=== PATIENT | female | born 1940 | race Caucasian/White ===

== ENCOUNTER 2018-03-15 16:09 | Observation (INO) | payer MEDICARE, BC ==
[~2018-03-15 16:09] MED LIST: ISOVUE-370 76%-LOCM 1 ML ONE
[2018-03-15 16:43] LABS: #Basophils 0.1 thou/uL (0.0-0.2); #Eosinphils 0.2 thou/uL (0.0-0.7); #Monocytes 0.8 thou/uL (0.11-0.59); %Basophils 1.5 % (0.0-1.0); %Eosinophils 2.8 % (0.0-10.0); %Lymphocytes 42.4 % (21.0-51.0); %Monocytes 10.8 % (0.0-10.0); %Neutrophils 42.5 % (42.0-75.0); Hemoglobin 12.5 g/dL (12.0-16.0); Mean Corpuscular HGB CONC 33.8 g/dL (32.0-36.0); Mean Corpuscular Hemoglobin 32.5 pg (27.0-31.0); Mean Platelet Volume 6.5 fL (7.4-10.4); Platelet Count 193 thou/uL (130-400); Red Blood Cell (RBC) Count 3.86 mill/uL (4.20-5.40); White Blood Cell (WBC) Count 7.1 thou/uL (4.8-10.8)
[2018-03-15 17:03] LABS: ALT (SGPT) 24 U/L (8-55); AST (SGOT) 21 U/L (5-34); Albumin 3.7 g/dL (3.4-4.8); Alkaline Phosphatase 81 U/L (40-150); Anion Gap 13 mmol/L (10-20); BUN (Urea Nitrogen) 11 mg/dL (9.8-20.1); Bilirubin, Total 0.3 mg/dL (0.2-1.2); CK (CPK) 33 U/L (29-168); Calc. Creatinine Clearance 0 mL/min (70-130); Calcium 9.3 mg/dL (7.8-10.44); Carbon Dioxide 28 mmol/L (23-31); Chloride 103 mmol/L (98-107); Estimated GFR-MDRD 77; Globulin 2.8 g/dL (2.4-3.5); Glucose 138 mg/dL (83-110); Potassium 3.7 mmol/L (3.5-5.1); Protein, Total 6.5 g/dL (6.0-8.3); Sodium 140 mmol/L (136-145)
--- NOTE | 2018-03-15 17:03 | RAD ---
CHEST ONE VIEW Upright portable: 03/15/18 HISTORY: 77-year-old female with history of chest pain, shortness of breath, dizziness. COMPARISON: 04/29/16. FINDINGS: Left ICD. Heart size is within normal limits. The lungs are clear of acute process. IMPRESSION: No acute intrathoracic disease. POS: [facility]
[2018-03-15 17:09] LABS: CKMB 0.7 ng/mL (0-6.6); Troponin I Less than 0.010 ng/mL (< 0.028)
[2018-03-15] MEDS ORDERED: Nitroglycerin 2% Ointment 1 INCH/1 GM Packet ONE (17:51)
[2018-03-15] MEDS ORDERED: Acetaminophen 325 MG TAB PO PRN ×2 (19:32→22:20)
[2018-03-15] MEDS ORDERED: Aspirin 325 MG TAB PO SCH (20:00)
[2018-03-15 21:08] VITALS: BMI 32.1
[2018-03-15 21:28] LABS: Troponin I Less than 0.010 ng/mL (< 0.028)
[2018-03-15] MEDS ORDERED: Senokot 8.6 MG TAB PO PRN (22:20)
[2018-03-15] MEDS ORDERED: Nitroglycerin 0.4 MG TAB (25 Tab Bottle) PO PRN (22:20)
[2018-03-15] MEDS ORDERED: Calcium Carbonate 500 MG ChewTAB PO PRN (22:20)
[2018-03-15] MEDS ORDERED: clonazePAM 0.5 MG TAB PO PRN (22:23)
[2018-03-15] MEDS ORDERED: HYDROcodone/Acetaminophen 10/325 mg Tablet PO PRN (22:23)
[2018-03-15] MEDS ORDERED: Carvedilol 25 MG TAB PO SCH (22:30)
[2018-03-15] MEDS ORDERED: risperiDONE 1 MG TAB PO SCH (22:30)
[2018-03-15] MEDS ORDERED: traZODone HCl 50 MG TAB PO SCH (22:30)
[2018-03-15] MEDS ORDERED: Gabapentin 100 MG CAP PO SCH (22:30)
[2018-03-15 23:52] LABS: Troponin I Less than 0.010 ng/mL (< 0.028)
--- NOTE | 2018-03-15 23:56 | HP ---
DATE OF ADMISSION: 03/15/2018 CHIEF COMPLAINT: Chest discomfort. PRIMARY CARE PHYSICIAN: Dr. Moore. PRIMARY TECHNICAL OPERATOR: Dr. Lloyd. HISTORY OF PRESENT ILLNESS: The patient is a 77-year-old female with obesity, chronic respiratory fa ilure, on home oxygen at night, hypertension, hyperlipidemia, and pacemaker in the past, presented to the emergency room with chest discomfort. Over the past couple of days, patient has intermittent chest discomforts which are short lasting. Ea rlier today around 2:00 p.m. while she was resting at home, she had sudden onset of chest discomfort that was pressure-like, radiating to her left arm. She had some left arm numbness as well. She ment ioned that she felt like an "baby elephant sitting on her chest." She tried one nitroglycerin with g ood response. Total pain lasted for approximately 45 minutes. She was short of breath and dizzy at that time. There was also some worsening of the pain on deep breathing. PAST MEDICAL HISTORY: 1. Hypertension. 2. History of pulmonary embolism, completed anticoagulation. 3. Hypothyroidism. 4. Chronic respiratory failure, on home oxygen. 5. Depression. 6. Pacemaker placement. 7. Chronic pain syndrome. 8. Cardiomyopathy. 9. History of atrial fibrillation in remote past. PAST SURGICAL HISTORY: 1. Pacemaker placement and multiple back surgeries. 2. Total abdominal hysterectomy with bilateral salpingo-oophorectomy. 3. Colonoscopy with polypectomy. SOCIAL HISTORY: She currently lives alone. She is . She spends most of her time in a [facility] er. She is not physically active. Currently smoking, alcohol or drug use. She makes her own decisi on with the help of her family. ALLERGIES: The patient denies any drug allergies. CURRENT HOME MEDICATIONS: Family to get accurate list of medications. She is unable to recall all o f her medications exactly. FAMILY HISTORY: Negative for premature coronary artery disease. REVIEW OF SYSTEMS: The following complete review of systems was negative, unless otherwise mentioned in the HPI or below: Constitutional: Weight loss or gain, ability to conduct usual activities. Skin: Rash, itching. Eyes: Double vision, pain. ENT/Mouth: Nose bleeding, neck stiffness, pain, tenderness. Cardiovascular: Palpitations, dyspnea on exertion, orthopnea. Respiratory: Shortness of breath, wheezing, cough, hemoptysis, fever or night sweats. Gastrointestinal: Poor appetite, abdominal pain, heartburn, nausea, vomiting, constipation, or diarr hea. Genitourinary: Urgency, frequency, dysuria, nocturia. Musculoskeletal: Pain, swelling. Neurologic/Psychiatric: Anxiety, depression. Allergy/Immunologic: Skin rash, bleeding tendency. PHYSICAL EXAMINATION: VITAL SIGNS: Temperature 97.9, respirations 16, pulse rate of 80, blood pressure 143/70 with O2 satu ration of 95% on room air, pulse rate of 80. GENERAL: A 77-year-old female in no apparent distress, no chest pain at this time. HEENT: Atraumatic, normocephalic. Sclerae are anicteric. Moist mucous membrane, no oral lesion. NECK: Supple, no JVD appreciated. No carotid bruit. LUNGS: Clear to auscultation bilaterally, no wheezing, rales or rhonchi. HEART: S1, S2 present. Regular rate and rhythm. No rubs or gallops appreciated. Pacemaker noted. There was no reproducible chest wall tenderness. ABDOMEN: Soft, nontender, bowel sounds present. EXTREMITIES: There was some calf tenderness bilaterally. She is unsure whether this is chronic. SKIN: Warm and dry. LYMPH NODES: No palpable lymph nodes in the neck. PERIPHERAL VASCULAR: Radial pulses palpable bilaterally. MUSCULOSKELETAL: No joint swelling or tenderness. LABORATORY DATA AND IMAGING DATA: Troponins were negative. CBC showed WBC 7.1 with hemoglobin 12.5, BUN 11, creatinine 0.73, BNP 82.6. Chest x-ray by my review was negative for infiltrate. EKG by my review showed paced rhythm. IMPRESSION: 1. Chest discomfort. We will rule out acute coronary syndrome. Pulmonary embolism also needs to be ruled out. Her pain was somewhat pleuritic. She spends most of the time sitting on a recliner. [facility] is not physically active. 2. Hypertension. 3. Hyperlipidemia. 4. Obesity with body mass index of 32.2. 5. Anxiety, depression. Patient denies any suicidal ideation. 6. History of pacemaker placement. 7. Chronic kidney disease stage 2. 8. Hypothyroidism. 9. Remote history of atrial fibrillation. 10. History of pulmonary embolism in the past. 11. Negative Cardiolite stress test in 2016. 12. Chronic pain syndrome. 13. Chronic respiratory failure on home oxygen at night. 14. Gastroesophageal reflux disease. PLAN: The patient will be monitored in the telemetry unit. Cardiology will be consulted. We will g et a D-dimer. If D-dimer is abnormal, she will benefit from a CT angiogram of the chest. We will ge t serial troponins. We will resume home medications once confirmed. We will continue proton pump in hibitors. Plan of care was discussed with the patient in detail. She stated understanding.
[2018-03-15] MEDS ORDERED: Nitroglycerin 2% Ointment 1 INCH/1 GM Packet TOP SCH (23:59)
[2018-03-16] MEDS ORDERED: Sodium Chloride 0.9% 1,000 ML IV SCH (00:45)
[2018-03-16] MEDS ORDERED: Levothyroxine Sodium 125 MCG TAB PO SCH (06:00)
[2018-03-16] MEDS ORDERED: Mometasone/Formoterol 120 PUFF INHALER INH SCH (06:30)
[2018-03-16] MEDS ORDERED: Aspirin 325 MG TAB PO SCH (08:00)
[2018-03-16] MEDS ORDERED: Carvedilol 25 MG TAB PO SCH (08:00)
[2018-03-16] MEDS ORDERED: Milk Of Magnesia 30 ML UDCUP PO PRN (08:22)
[2018-03-16] MEDS ORDERED: Loperamide HCl 2 MG CAP PO PRN (08:22)
[2018-03-16] MEDS ORDERED: hydrALAZINE 20 MG/ML VIAL SLOW IVP PRN (08:22)
[2018-03-16] MEDS ORDERED: Diabetic Tussin 200 MG/10 ML UDCUP PO PRN (08:22)
[2018-03-16] MEDS ORDERED: Mag-Al 1200 mg/1200 mg/30 ML UDCUP PO PRN (08:22)
[2018-03-16] MEDS ORDERED: Loratadine 10 MG TAB PO PRN (08:22)
[2018-03-16] MEDS ORDERED: Sodium Chloride 0.65% Nasal 44 ML BOT EA NARE PRN (08:22)
[2018-03-16] MEDS ORDERED: HYDROcodone/Acetaminophen 5/325 mg Tablet PO PRN (08:22)
[2018-03-16] MEDS ORDERED: Chloraseptic Spray 180 ml Bottle PO PRN (08:22)
[2018-03-16] MEDS ORDERED: Artificial Tears 18 DROP/0.9 ML EA EYE PRN (08:22)
[2018-03-16] MEDS ORDERED: Ondansetron HCl/PF 4 MG/2 ML Vial IVP PRN (08:22)
[2018-03-16] MEDS ORDERED: Eucerin (Mineral Oil/Petrolatum,White) 30 gm Jar TOP PRN (08:22)
[2018-03-16] MEDS ORDERED: Ondansetron ODT 4 MG TAB PO PRN (08:22)
[2018-03-16] MEDS: Gabapentin 100 MG CAP PO SCH ×2 (08:50→15:50)
[2018-03-16] MEDS ORDERED: Lisinopril 20 MG TAB PO SCH (09:00)
[2018-03-16] MEDS ORDERED: Enoxaparin Sodium 40 MG/0.4 ML SYRINGE SC SCH (09:00)
[2018-03-16] MEDS ORDERED: Docusate 100 MG CAP PO SCH (09:00)
[2018-03-16] MEDS ORDERED: Citalopram 20 MG TAB PO SCH (09:00)
[2018-03-16] MEDS ORDERED: Famotidine 20 MG TAB PO SCH (09:00)
[2018-03-16] MEDS ORDERED: Furosemide 40 MG TAB PO SCH (09:00)
[2018-03-16] MEDS ORDERED: Atorvastatin Calcium 40 MG TAB PO SCH (09:00)
[2018-03-16] MEDS ORDERED: Regadenoson 0.4 MG/5 ML SYRINGE ONE (09:38)
--- NOTE | 2018-03-16 10:12 | CT ---
CT PULMONARY ANGIOGRAM WITH IV CONTRAST AND 3D POST PROCESSING: HISTORY: Pleuritic chest pain with shortness of breath. COMPARISON: 04/30/2016 FINDINGS: There is good contrast opacification in the pulmonary arterial vasculature without filling defects to suggest pulmonary embolism. There are vascular calcifications without aneurysmal dilatation of the thoracic aorta. No pleural or pericardial effusions are seen. There is mild scarring at the lung ba ses. No pneumothoraces or focal areas of consolidation are identified. Calcified granulomas are see n in the visualized portions of the liver and spleen. There are degenerative changes in the spine. IMPRESSION: No CT evidence of pulmonary embolism. POS: [facility]
--- NOTE | 2018-03-16 11:55 | PDOC.PN ---
- Subjective Encounter Start Date: 03/16/18 Encounter Start Time: 07:40 -: old records requested/rev Patient seen and examined. No new complaints. No overnight events - Objective Resuscitation Status: Resuscitation Status FULL:Full Resuscitation MAR Reviewed: Yes Vital Signs & Weight: Vital Signs (12 hours) Temp Pulse Resp BP BP Pulse Ox 03/16/18 08:01 98.6 F 79 14 130/60 93 L 03/16/18 06:49 94 L 03/16/18 04:42 97.8 F 80 16 141/72 H 93 L Weight Weight 181 lb 9.6 oz I&O: 03/15/18 03/16/18 03/17/18 06:59 06:59 06:59 Intake Total 200 Output Total 300 Balance -100 Result Diagrams: 03/15/18 16:34 03/15/18 16:33 Radiology Reviewed by me: Yes EKG Reviewed by me: Yes Phys Exam - Physical Examination Constitutional: NAD HEENT: PERRLA, moist MMs, sclera anicteric Neck: no JVD, supple Respiratory: no wheezing, no rales, no rhonchi Cardiovascular: RRR, no significant murmur, no rub Gastrointestinal: soft, non-tender, no distention, positive bowel sounds Musculoskeletal: no edema, pulses present Neurological: non-focal, normal sensation, moves all 4 limbs Psychiatric: normal affect, A&O x 3 Skin: no rash, normal turgor Dx/Plan (1) Chest pain Code(s): R07.9 - CHEST PAIN, UNSPECIFIED Status: Acute (2) Anxiety and depression Code(s): F41.9 - ANXIETY DISORDER, UNSPECIFIED; F32.9 - MAJOR DEPRESSIVE DISORDER, SINGLE EPISODE, UNSPECIFIED Status: Chronic (3) CKD (chronic kidney disease) stage 2, GFR 60-89 ml/min Code(s): N18.2 - CHRONIC KIDNEY DISEASE, STAGE 2 (MILD) Status: Chronic (4) Chronic pain disorder Code(s): G89.4 - CHRONIC PAIN SYNDROME Status: Chronic (5) Chronic respiratory failure with hypoxia, on home O2 therapy Code(s): J96.11 - CHRONIC RESPIRATORY FAILURE WITH HYPOXIA; Z99.81 - DEPENDENCE ON SUPPLEMENTAL OXYGEN Status: Chronic (6) Dyslipidemia Code(s): E78.5 - HYPERLIPIDEMIA, UNSPECIFIED Status: Chronic (7) GERD (gastroesophageal reflux disease) Code(s): K21.9 - GASTRO-ESOPHAGEAL REFLUX DISEASE WITHOUT ESOPHAGITIS Status: Chronic (8) H/O cardiac pacemaker Code(s): Z95.0 - PRESENCE OF CARDIAC PACEMAKER Status: Chronic (9) History of pulmonary embolism Code(s): Z86.711 - PERSONAL HISTORY OF PULMONARY EMBOLISM Status: Chronic (10) Hypertension Code(s): I10 - ESSENTIAL (PRIMARY) HYPERTENSION Status: Chronic (11) Hypothyroidism Code(s): E03.9 - HYPOTHYROIDISM, UNSPECIFIED Status: Chronic (12) Obesity (BMI 30.0-34.9) Code(s): E66.9 - OBESITY, UNSPECIFIED Status: Chronic - Plan cont current plan of care * medication reviewed as below * symptomatic treatment * if stress test negative, will discharge * cardiology on case. Review of Systems - Review of Systems Eyes: negative: Pain, Vision Change, Conjunctivae Inflammation, Eyelid Inflammation, Redness, Other ENT: negative: Ear Pain, Ear Discharge, Nose Pain, Nose Discharge, Nose Congestion, Mouth Pain, Mouth Swelling, Throat Pain, Throat Swelling, Other Respiratory: negative: Cough, Dry, Shortness of Breath, Hemoptysis, SOB with Excertion, Pleuritic Pain, Sputum, Wheezing Cardiovascular: negative: chest pain, palpitations, orthopnea, paroxysmal nocturnal dyspnea, edema, light headedness, other Gastrointestinal: negative: Nausea, Vomiting, Abdominal Pain, Diarrhea, Constipation, Melena, Hematochezia, Other Genitourinary: negative: Dysuria, Frequency, Incontinence, Hematuria, Retention , Other Musculoskeletal: negative: Neck Pain, Shoulder Pain, Arm Pain, Back Pain, Hand Pain, Leg Pain, Foot Pain, Other Skin: negative: Rash, Lesions, Sam, Bruising, Other - Medications/Allergies Allergies/Adverse Reactions: Allergies Allergy/AdvReac Type Severity Reaction Status Date / Time No Known Drug Allergies Allergy Verified 03/15/18 19:55 Medications: Current Medications Acetaminophen (Tylenol) 650 mg PO Q4H PRN PRN Reason: Headache/Fever or Pain Hydrocodone Bitart/Acetaminophen ([place] 10/325) 1 tab PO Q8H PRN PRN Reason: Severe Pain (7-10) Last Admin: 03/15/18 23:09 Dose: 1 tab Hydrocodone Bitart/Acetaminophen ([place] 5/325) 1 tab PO Q4H PRN PRN Reason: Moderate Pain (4-6) Al Hydroxide/Mg Hydroxide (Maalox) 15 ml PO Q4H PRN PRN Reason: Heartburn or Indigestion Albuterol/Ipratropium (Duoneb) 3 ml NEB Q4H PRN PRN Reason: SOB &/or Wheezing Artificial Tears (Tears Naturale) 0 drop EA EYE PRN PRN PRN Reason: Dry Eyes [facility]) [facility] Last Admin: 03/16/18 08:50 Dose: 325 mg Atorvastatin Calcium (Lipitor) 40 mg PO DAILY [facility] Last Admin: 03/16/18 08:50 Dose: 40 mg Calcium Carbonate (Tums) 1,000 mg PO Q4H PRN PRN Reason: Heartburn or Indigestion Carvedilol (Coreg) 12.[facility] Last Admin: 03/16/18 08:51 Dose: Not Given Citalopram Hydrobromide (Celexa) 40 mg PO DAILY [facility] Last Admin: 03/16/18 08:50 Dose: 40 mg Clonazepam (Klonopin) 0.5 mg PO BIDPRN PRN PRN Reason: Anxiety Docusate Sodium (Colace) 100 mg PO BID [facility] Last Admin: 03/16/18 08:51 Dose: 100 mg Enoxaparin Sodium (Lovenox) 40 mg SC 0900 [facility] Last Admin: 03/16/18 08:52 Dose: Not Given Furosemide (Lasix) 40 mg PO DAILY [facility] Last Admin: 03/16/18 08:51 Dose: 40 mg Gabapentin (Neurontin) 100 mg PO TID [facility] Last Admin: 03/16/18 08:50 Dose: 100 mg Guaifenesin (Robitussin Sf) 200 mg PO Q4H PRN PRN Reason: Cough Hydralazine HCl (Apresoline) 10 mg SLOW IVP Q4H PRN PRN Reason: Systolic BP > 180 Sodium Chloride (Normal Saline 0.9%) 1,000 mls @ 50 mls/hr IV .Q20H [facility] Stop: 03/16/18 20:46 Last Admin: 03/16/18 01:53 Dose: 1,000 mls Levothyroxine Sodium (Synthroid) 125 mcg PO 0600 [facility] Last Admin: 03/16/18 04:45 Dose: 125 mcg Lisinopril (Zestril) 20 mg PO DAILY [facility] Last Admin: 03/16/18 08:50 Dose: 20 mg Loperamide HCl (Imodium) 2 mg PO PRN PRN PRN Reason: Diarrhea/Loose Stools Loratadine (Claritin) 10 mg PO DAILYPRN PRN PRN Reason: Sinus Symptoms Magnesium Hydroxide (Milk Of Magnesium) 30 ml PO DAILYPRN PRN PRN Reason: Constipation Mineral Oil/White Petrolatum (Eucerin Cream) 0 gm TOP BIDPRN PRN PRN Reason: Dry Skin Mometasone Furoate/Formoterol Fumar (Dulera 200 Mcg/5 Mcg Inhaler) 2 puff INH BID-RT [facility] Last Admin: 03/16/18 06:46 Dose: 2 puff Nitroglycerin (Nitrostat) 0.4 mg PO Q5MIN PRN PRN Reason: Chest Pain Ondansetron HCl (Zofran Odt) 4 mg PO Q6H PRN PRN Reason: Nausea/Vomiting Ondansetron HCl (Zofran) 4 mg IVP Q6H PRN PRN Reason: Nausea/Vomiting Pantoprazole Sodium (Protonix) 40 mg PO DAILY [facility] Last Admin: 03/16/18 08:51 Dose: 40 mg Phenol (Chloraseptic [place] 180 Ml Bot) 0 ml PO PRN PRN PRN Reason: Sore Throat Risperidone (Risperidone) 1 mg PO [facility] Senna (Senokot) 2 tab PO HSPRN PRN PRN Reason: Constipation Sodium Chloride ([place] Nasal [place] 0.65%) 0 ml EA NARE QIDPRN PRN PRN Reason: Nasal Congestion Sodium Chloride (Flush - Normal Saline) 10 ml IVF Q12HR [facility] Last Admin: 03/16/18 08:53 Dose: 10 ml Sodium Chloride (Flush - Normal Saline) 10 ml IVF PRN PRN PRN Reason: Saline Flush Trazodone HCl (Desyrel) 100 mg PO HS [facility]
--- NOTE | 2018-03-16 11:59 | DIS ---
PRIMARY CARE PHYSICIAN: Dr. Micky Moore. DATE OF ADMISSION: 03/15/2018 DATE OF DISCHARGE: 03/16/2018 DISCHARGE DISPOSITION: Home. PRIMARY DISCHARGE DIAGNOSES: Chest pain, ruled out acute coronary syndrome. SECONDARY DISCHARGE DIAGNOSES: Obesity with BMI 32, hypothyroidism, hypertension, history of pulmona ry embolism in past, history of cardiac pacemaker, gastroesophageal reflux disease, dyslipidemia, chr onic kidney disease stage 2, chronic respiratory failure with hypoxia on home oxygen, chronic pain di sorder, anxiety, and depression. PRIMARY PROCEDURE/OPERATION: None. RADIOLOGICAL INVESTIGATION: CT angiography was negative for pulmonary embolism. Chest x-ray was nor mal. SIGNIFICANT LABORATORY DATA: WBC 7.1, hemoglobin 12.5, platelet 193. D-dimer 1.36. Sodium 140, pot assium 3.7, BUN 11, creatinine 0.73. Glucose 138, calcium 9.3. LFT normal. Cardiac enzymes negativ e x3. BNP 82.6, lipase 30, magnesium 1.9. DISCHARGE MEDICATIONS: Vitamin D2 at 50,000 units every 7 days, aspirin 81 mg 2 tablets daily, Lipit or 40 mg p.o. daily, Biotin 5 mg p.o. daily, Symbicort 2 puff inhalation b.i.d., calcium carbonate 60 0 mg p.o. daily, Coreg 12.5 mg p.o. b.i.d., Celexa 40 mg p.o. daily, clonazepam 0.5 mg p.o. b.i.d. p. r.n., Lasix 40 mg p.o. daily, gabapentin 100 mg p.o. t.i.d., [place] 10 one tablet q.8 hourly p.r.n., S ynthroid 125 mcg p.o. daily, multivitamin 1 tablet p.o. daily, Prilosec 20 mg p.o. daily, risperidone 1 mg p.o. at bedtime, and trazodone 100 mg p.o. at bedtime. CONTRAINDICATIONS: None. CODE STATUS: FULL CODE. INPATIENT CONSULTANTS: Dr. Lloyd was consulted while in hospital. TEST RESULTS PENDING ON DISCHARGE: None. ALLERGIES: No known drug allergy. DISCHARGE PLAN: Post hospital, the patient will follow up with primary care physician. HOSPITAL COURSE: This is a 77-year-old female, who was admitted last night with complaint of chest p ain. Please see Dr. Frandy Odell's H&P for further detail. She was reporting chest discomfort, which was sort lasting started at 2:00 p.m. yesterday when she was resting at home. She also felt some pr essure sensation, which radiated to left arm. She felt left arm numbness as well. She was feeling a s if somebody seated on her chest. In the emergency room, patient had elevated D-dimer and that is w hy CT angio was done, which was negative for pulmonary embolism. The patient was admitted to telemet ry floor. We did serial cardiac enzyme and that remained negative. Her BNP was normal. Her lipase was also normal. Telemetry remained unremarkable. The patient did not have any further chest pain. Admitting physician consulted Dr. Lloyd for opinion. At this point, the patient is waiting for Dr. Lloyd's decision and depending upon Dr. Lloyd's decision, the patient will be discharged versus st ress test versus further investigation seems like Dr. 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 The patient is seen and examined at bedside today. REVIEW OF SYSTEM: All review of system reviewed and negative. PHYSICAL EXAMINATION: VITAL SIGNS: Currently, temperature 98.6, pulse 79, respiratory rate 14, saturation 93% on room air, blood pressure 130/60. Weight 181 pound. GENERAL: The patient is currently alert, awake, no obvious acute distress. HEAD: Normocephalic, atraumatic. EYES: Pupils round, reactive to light. Extraocular muscle intact. ENT: Oropharynx within normal limits. Moist mucous membranes. No oral lesion, no pharyngeal erythe ma, no exudate. NECK: Supple, no JVD, no thyromegaly, no carotid bruit. No jugular venous distention. LUNGS: Clear to auscultation without any rhonchi or rales. CARDIAC: S1 and S2 regular without any murmur. ABDOMEN: Soft and benign without any tenderness. EXTREMITIES: No edema. NEUROLOGIC: Nonfocal examination. Overall, the patient is medically stable for discharge later on today if stress test is negative and Cardiology okay.
[2018-03-16 15:59] VITALS: TEMP 97.8
--- NOTE | 2018-03-16 16:31 | NM ---
CARDIAC SPECT: 03/16/18 HISTORY: 77-year-old female with chest pain and atrial fibrillation. Shortness of breath, hypertension, hyperl ipidemia. TECHNIQUE: A myocardial perfusion scan was performed using the single isotope one day protocol with technetium 9 9m Sestamibi. 9 millicuries was injected intravenously for the rest exam followed by 28 millicuries f or the stress study. Pharmacologic stress with Lexiscan was monitored and interpreted by Dr. Lloyd. FINDINGS: Fairly homogeneous tracer distribution is seen in the myocardial segments on stress and rest images w ithout fixed or reversible defects. GATED SPECT LVEF: 71%. WALL MOTION EXAM: Normal. IMPRESSION: Normal myocardial perfusion scan. POS: [facility]
[2018-03-16 16:43] VITALS: BP 179/78
[2018-03-16] MEDS ORDERED: traZODone HCl 50 MG TAB PO SCH (21:00)
[2018-03-16] MEDS ORDERED: risperiDONE 1 MG TAB PO SCH (21:00)
--- NOTE | 2018-03-19 10:53 | EKG ---
Test Reason : Blood Pressure : / mmHG Vent. Rate : 080 BPM Atrial Rate : 080 BPM P-R Int : 210 ms QRS Dur : 134 ms QT Int : 446 ms P-R-T Axes : 057 -45 075 degrees QTc Int : 514 ms AV sequential or dual chamber electronic pacemaker Confirmed by DARRON PAGE, CHERRI ([id number]), desk editor GILDARDO PARADA ([id number]) on 03/19/2018 10:52:52 AM Referred By: Confirmed By:CHERRI ROB MD
== END 2018-03-16 17:32 | disposition home or self-care (01) ==
LOC: ERS 16:09 → 2SW 19:25
PROVIDERS: ADMIT Internal Medicine Infectious Disease; ATTEND Internal Medicine Infectious Disease
DX: R07.89 Other chest pain (principal); E78.5 Hyperlipidemia, unspecified; E03.9 Hypothyroidism, unspecified; F32.9 Major depressive disorder, single episode, unspecified; G89.4 Chronic pain syndrome; I48.91 Unspecified atrial fibrillation; I13.10 Hypertensive heart and chronic kidney disease without heart failure, with stage 1 through stage 4 chronic kidney disease, or unspecified chronic kidney disease; I43 Cardiomyopathy in diseases classified elsewhere; N18.2 Chronic kidney disease, stage 2 (mild); F17.210 Nicotine dependence, cigarettes, uncomplicated; F41.8 Other specified anxiety disorders; K21.9 Gastro-esophageal reflux disease without esophagitis; J96.11 Chronic respiratory failure with hypoxia; E66.9 Obesity, unspecified; Z68.32 Body mass index [BMI] 32.0-32.9, adult; Z86.711 Personal history of pulmonary embolism; Z79.82 Long term (current) use of aspirin; Z79.51 Long term (current) use of inhaled steroids; Z79.899 Other long term (current) drug therapy; Z95.0 Presence of cardiac pacemaker
CPT/HCPCS: 71045; 71275; 78452; 80053; 82550; 82553; 83690; 83735; 83880; 84484 ×2; 85025; 85379; 93005; 93017; 94640; 94760; 97139; 99285; A9500; G0378 ×2; 36415; 96360; A4216; J1650; J2785

== ENCOUNTER 2018-04-07 06:55 | Day surgery (SDC) | payer MEDICARE, BC ==
[2018-04-06 12:53] VITALS: BMI 32.2
[2018-04-07 07:59] VITALS: BP 154/72; TEMP 97.2
[2018-04-07] MEDS ORDERED: Iopamidol-M 200 41% 20 ML VIAL ONE (08:26)
--- NOTE | 2018-04-07 10:48 | RAD ---
LUMBAR SPINE MYELOGRAM: HISTORY: Spondylosis. EXPOSURE: 0.8 minutes. 704.4 mGy*^m2. FINDINGS: There are posterior fusion changes at L3, L5, and S1. No perihardware lucency. Disk prosthesis at L 3-L4 and L4-L5. Vertebral body height is maintained. No fracture. Successful lumbar puncture. Total of 9 cc of Isovue-M 200 contrast was administered intrathecally at the L1-L2 level. There are no immediate or postprocedure complications. TECHNIQUE: Consent was obtained to perform a lumbar puncture for lumbar myelogram. The patient's back was evalu ated. The L1-L2 level was deemed appropriate. The skin was prepped and draped in sterile fashion. 1% Lidocaine, buffered with sodium bicarbonate used for local anesthesia. Under fluoroscopic guidanc e, a 22-gauge spinal needle was advanced into the CSF space. Via a short tubing catheter, a total of 9 cc of [id number] contrast was administered intrathecally. No immediate postprocedure complication s. IMPRESSION: Successful lumbar puncture for lumbar myelogram. Please refer to myelogram CT for further details. POS: [facility]
--- NOTE | 2018-04-07 11:00 | CT ---
POST MYELOGRAM LUMBAR SPINE CT: COMPARISON: 08/15/13. HISTORY: Spondylosis. TECHNIQUE: Post myelogram lumbar spine CT is performed in the axial plane. Three-dimensional reformatted images are submitted for interpretation. FINDINGS: Bilateral transpedicular screws at L2, L3, and S1. No perihardware lucency. There is a disk prosthe sis at L2-L3 and L3-L4. Note, the L4-L5 prosthesis is at the posterior-most margin of the adjacent v ertebra. Symmetric attenuation of the psoas muscles. The visualized solid organs are unremarkable. Atherosclerosis of the aorta is identified. Lung bases are clear. Conus medullaris terminates at the mid L1 level. T11-T12: Minimal central/left paracentral disk bulge. Minimal central canal stenosis. Patent bilat eral neural foramina. T12-L1: No significant central canal stenosis. Neural foramen are patent. L1-L2: Generalized disk bulge results in mild central canal stenosis. Mild bilateral neural foramin al narrowing. L2-L3: Vacuum disk phenomenon. Generalized disk bulge results in mil central canal stenosis. Mild bilateral neural foraminal narrowing. L3-L4: There is a disk prosthesis. There is a left hemilaminotomy defect. No high-grade central ca nal stenosis. Mild right and mild to moderate left foraminal narrowing. L4-L5: There is a right hemilaminectomy defect. There is a disk prosthesis. There is a central/rig ht paracentral abnormal attenuation which may in part be due to scar versus residual disk. There is mild mass effect upon the right subarticular zone. Minimal obscuration of the traversing right L5 ne rve root. Overall, there is no significant central canal stenosis. Mild right foraminal narrowing. Minimal left foraminal narrowing. L5-S1: No significant central canal stenosis. There is a left hemilaminectomy defect. Neural lashell amy are patent bilaterally. IMPRESSION: Postsurgical changes and fusion changes as above. No evidence of high-grade central canal stenosis. No evidence of high-grade neural foraminal narrowing. POS: [facility]
== END 2018-04-07 09:55 | disposition home or self-care (01) ==
LOC: RAD 06:55
PROVIDERS: ATTEND Neurological Surgery
PROC: B02B1ZZ Computerized Tomography (CT Scan) of Spinal Cord using Low Osmolar Contrast (ICD-10-PCS; principal; 2018-04-07)
DX: M48.061 Spinal stenosis, lumbar region without neurogenic claudication (principal); M51.26 Other intervertebral disc displacement, lumbar region; M47.9 Spondylosis, unspecified; M19.90 Unspecified osteoarthritis, unspecified site; I10 Essential (primary) hypertension; F17.210 Nicotine dependence, cigarettes, uncomplicated; Z95.0 Presence of cardiac pacemaker; Z79.51 Long term (current) use of inhaled steroids; Z79.82 Long term (current) use of aspirin; Z79.899 Other long term (current) drug therapy; Z98.1 Arthrodesis status
CPT/HCPCS: 62304; 72132

== ENCOUNTER 2018-12-17 16:08 | Observation (INO) | payer MEDICARE, BC ==
[2018-12-17 16:36] LABS: #Basophils 0.1 thou/uL (0.0-0.2); #Eosinphils 0.3 thou/uL (0.0-0.7); #Monocytes 0.9 thou/uL (0.11-0.59); %Basophils 1.1 % (0.0-1.0); %Eosinophils 3.6 % (0.0-10.0); %Lymphocytes 31.7 % (21.0-51.0); %Monocytes 9.5 % (0.0-10.0); %Neutrophils 54.1 % (42.0-75.0); Hemoglobin 13.2 g/dL (12.0-16.0); Mean Corpuscular Hemoglobin 31.9 pg (27.0-31.0); Mean Corpuscular Volume 96.8 fL (78.0-98.0); Mean Platelet Volume 7.4 fL (7.4-10.4); Platelet Count 198 thou/uL (130-400); RBC Distribution Width 12.4 % (11.5-14.5); Red Blood Cell (RBC) Count 4.14 mill/uL (4.20-5.40); White Blood Cell (WBC) Count 9.3 thou/uL (4.8-10.8)
[2018-12-17] MEDS ORDERED: Aspirin Chewable 81 MG TAB ONE (16:38)
[2018-12-17] MEDS ORDERED: Nitroglycerin 2% Ointment 1 INCH/1 GM Packet ONE (16:38)
[2018-12-17 16:58] LABS: ALT (SGPT) 32 U/L (8-55); AST (SGOT) 21 U/L (5-34); Alkaline Phosphatase 65 U/L (40-150); Anion Gap 14 mmol/L (10-20); BUN (Urea Nitrogen) 16 mg/dL (9.8-20.1); Bilirubin, Total 0.3 mg/dL (0.2-1.2); Calc. Creatinine Clearance 0 mL/min (70-130); Calcium 9.8 mg/dL (7.8-10.44); Carbon Dioxide 29 mmol/L (23-31); Chloride 102 mmol/L (98-107); Estimated GFR-MDRD 68; Globulin 3.1 g/dL (2.4-3.5); Glucose 168 mg/dL (83-110); Lipase 38 U/L (8-78); Potassium 4.1 mmol/L (3.5-5.1); Protein, Total 7.1 g/dL (6.0-8.3); Sodium 141 mmol/L (136-145)
--- NOTE | 2018-12-17 17:00 | RAD ---
AP view chest. HISTORY: Chest pain. AP view chest obtained on 12/17/2018. Comparison made to previous exam from 03/15/2018. AP view chest demonstrates a dual-lead intracardiac pacing device. Mild cardiomegaly seen. Pulmonary vascular congestion seen. No evidence of effusions, pneumonia or pneumothorax seen. IMPRESSION: Mild pulmonary vascular congestion and mild cardiomegaly.
[2018-12-17] MEDS ORDERED: Acetaminophen 500 MG TAB ONE (18:43)
[2018-12-17] MEDS ORDERED: Senokot S 8.6-50 MG TAB PO PRN (19:09)
[2018-12-17] MEDS ORDERED: HYDROcodone/Acetaminophen 5/325 mg Tablet PO PRN (19:09)
[2018-12-17] MEDS ORDERED: Acetaminophen 325 MG TAB PO PRN (19:09)
[2018-12-17] MEDS ORDERED: hydrALAZINE 20 MG/ML VIAL SLOW IVP PRN (19:14)
[2018-12-17] MEDS ORDERED: cloNIDine 0.1 MG TAB PO PRN (19:14)
--- NOTE | 2018-12-17 19:18 | CT ---
CT brain. HISTORY: Dizziness. Noncontrast enhanced images of brain obtained. The brain is unremarkable. No evidence of intracranial masses, hemorrhages, strokes or contusion seen . IMPRESSION: Normal CT brain.
[2018-12-17 19:42] LABS: Cardiac Risk 3.2 (Less than 4.5)
[2018-12-17 20:24] VITALS: BMI 33.2
[2018-12-17 20:51] LABS: Troponin I Less than 0.010 ng/mL (< 0.028)
[2018-12-17] MEDS ORDERED: risperiDONE 1 MG TAB PO SCH (21:00)
[2018-12-17] MEDS ORDERED: traZODone HCl 50 MG TAB PO SCH (21:00)
[2018-12-17] MEDS: Famotidine 20 MG TAB PO SCH (21:15)
[2018-12-17] MEDS: clonazePAM 0.5 MG TAB PO SCH (21:20)
[2018-12-17] MEDS: Gabapentin 100 MG CAP PO SCH (21:20)
[2018-12-17] MEDS: Carvedilol 6.25 MG TAB PO SCH (21:20)
--- NOTE | 2018-12-17 23:04 | HP ---
PRIMARY CARE PHYSICIAN: Dr. Moore. GEAR CUTTING MACHINE OPERATOR: Dr. Lloyd. CHIEF COMPLAINT: Dizziness and chest pain. HISTORY OF PRESENT ILLNESS: Ms. Morrison is a 78-year-old female with a past medical history of congestive heart failure with a pacemaker, hypertension; COPD, on home oxygen; chronic back pain, hyperlipidemia, who presents to the ER for chest pain that started at 1300 hours. The patient reports that the chest pain is to her upper abdomen, is diffuse and relieved by nothing and exacerbated by nothing. She also reports some associated dizziness that started the night prior and has not resolved. She denies any vertigo. In the ER, the patient was given 1 inch of nitroglycerin and two 81 mg aspirins which resolved her chest pain. When I saw her on exam, she was not having any more chest pain. CT was done of her brain and it was negative. Chest x-ray was positive for some mild pulmonary congestion with mild cardiomegaly. Troponins were unremarkable at 0.010. Lipase was 38, and liver enzymes were within normal limits. The patient will be admitted to the tele observation unit for further evaluation and cardiac workup. PAST MEDICAL HISTORY: Chronic back pain, hyperlipidemia, congestive heart failure with pacemaker, hypertension, and COPD, on home oxygen. PAST SURGICAL HISTORY: Bilateral cataracts, appendectomy, hysterectomy, back surgery x3, left foot and left elbow surgery, and tonsillectomy. PSYCH HISTORY: Positive for anxiety. SOCIAL HISTORY: She is a former tobacco user, 10 years prior. Denies any illicit drug use or any alcohol intake. ALLERGIES: NO KNOWN DRUG ALLERGIES. HOME MEDICATIONS: 1. Ergocalciferol 50,000 unit capsule one p.o. q.7 days. 2. Ecotrin (aspirin) 81 mg tablet two tablets p.o. daily. 3. Atorvastatin 40 mg p.o. daily. 4. Biotin 5 mg p.o. daily. 5. Symbicort 160/4.5 two puffs inhaled q.a.m. 6. Symbicort 160/4.5 one puff inhaled at bedtime. 7. Calcium carbonate 600 mg p.o. daily. 8. Coreg 12.5 mg p.o. daily. 9. Citalopram 40 mg p.o. daily. 10. Clonazepam 0.5 mg p.o. b.i.d. 11. Lasix 40 mg p.o. daily. 12. Gabapentin 100 mg p.o. t.i.d. 13. Synthroid 125 mcg p.o. daily. 14. Lisinopril 20 mg p.o. daily. 15. Multivitamin one tablet p.o. daily. 16. Prilosec 20 mg p.o. daily. 17. Klor-Con 20 mEq p.o. daily. 18. Risperidone 1 mg p.o. at bedtime. 19. Trazodone 100 mg p.o. at bedtime. 20. Vitamin A, vitamin C, vitamin E, zinc, copper, multivitamin one tablet p.o. daily. REVIEW OF SYSTEMS: The patient was complaining of chest pain. Denies chest palpitations, orthopnea, shortness of breath, or diaphoresis, and the patient was also positive for dizziness. Denies vertigo. Denies any numbness or tingling to her extremities. Denies headache. All other systems reviewed and are negative unless mentioned in the HPI. PHYSICAL EXAMINATION: VITAL SIGNS: Temperature 98.2 oral, blood pressure 190/80, pulse is 73, respirations 18, and she is 91% on room air. CONSTITUTIONAL: The patient is alert and oriented x4. No acute distress. HEENT: Head is atraumatic and normocephalic. Eyes, PERRLA. Sclerae nonicteric. ENT, mucous membranes moist. Oropharynx is clear. Uvula midline. NECK: Supple. No thyromegaly. No lymphadenopathy. RESPIRATORY: The patient is diminished in the lower lobes. Lung sounds are diminished. Respirations are even and unlabored. CARDIOVASCULAR: The patient is paced. Has a pacemaker on the left upper chest wall. No murmurs, rubs, or gallops.. GI: The abdomen is mildly tender to light palpation. No hepatosplenomegaly. No peritoneal signs. EXTREMITIES: She has 2+ bilateral pedal pulses. No edema noted. NEUROLOGIC: The patient is intact. Cranial nerves 2 through 7 intact. Moves all extremities well. SKIN: No new rashes. LABORATORY DATA: CBC, hematology; white blood cell count 9.3, hemoglobin 13.2, hematocrit 40.1, and platelet count 198. Chemistry; sodium 141, potassium 4.1, BUN 16, creatinine 0.81, glucose was slightly elevated at 168. Cardiac enzymes x2 were negative. LFTs were unremarkable. AST was 21, ALT was 32. Fast lipid panel; cholesterol is 164, triglycerides 143, LDL was 84, and HDL was 51. Lipase was 38. CARDIOVASCULAR STUDIES: EKG, the patient has a paced rhythm with AV paced, 71 beats per minute with left axis. ASSESSMENT AND PLAN: 1. Chest pain, rule out myocardial infarction. We will trend troponins. We will order an echocardiogram. We will interrogate the pacemaker. We will continue the patient's aspirin full dose. The patient's last cardiac stress test was in February, it was normal with an EF of 71. We will consult Cardiology, the patient's cartography professor is Dr. Lloyd. 2. Congestive heart failure. Chest x-ray showed mild pulmonary congestion and cardiomegaly, appear stable, so we will restart home medications. 3. Hypertension. The patient is hypertensive in the emergency room. We will start p.r.n. medications and restart her home medications. 4. Chronic obstructive pulmonary disease. We will restart home medications will monitor 5. Hyperlipidemia. We will restart home medications. 6. GI and DVT prophylaxis. Hospital course is dependent on clinical findings. Job ID: [id number] MTDD
[2018-12-17 23:31] LABS: Troponin I Less than 0.010 ng/mL (< 0.028)
[2018-12-18 05:12] LABS: #Eosinphils 0.5 thou/uL (0.0-0.7); #Lymphocytes 2.4 thou/uL (1.20-3.40); #Monocytes 0.8 thou/uL (0.11-0.59); #Neutrophils 2.6 thou/uL (1.40-6.50); %Basophils 0.6 % (0.0-1.0); %Eosinophils 7.2 % (0.0-10.0); %Lymphocytes 38.6 % (21.0-51.0); %Neutrophils 41.7 % (42.0-75.0); Hemoglobin 12.5 g/dL (12.0-16.0); Mean Corpuscular HGB CONC 33.2 g/dL (32.0-36.0); Mean Corpuscular Hemoglobin 32.2 pg (27.0-31.0); Mean Corpuscular Volume 96.9 fL (78.0-98.0); Mean Platelet Volume 7.5 fL (7.4-10.4); Platelet Count 175 thou/uL (130-400); RBC Distribution Width 12.6 % (11.5-14.5); Red Blood Cell (RBC) Count 3.88 mill/uL (4.20-5.40); White Blood Cell (WBC) Count 6.3 thou/uL (4.8-10.8)
[2018-12-18 05:19] LABS: Hemoglobin A1c 6.4 % (4.0-6.0)
[2018-12-18 05:42] LABS: Anion Gap 12 mmol/L (10-20); BUN (Urea Nitrogen) 17 mg/dL (9.8-20.1); Calc. Creatinine Clearance 83 mL/min (70-130); Calcium 9.5 mg/dL (7.8-10.44); Carbon Dioxide 29 mmol/L (23-31); Chloride 103 mmol/L (98-107); Estimated GFR-MDRD 75; Glucose 128 mg/dL (83-110); Sodium 140 mmol/L (136-145)
[2018-12-18 05:59] LABS: Free T4 (Free Thyroxine) 1.08 ng/dL (0.70-1.48)
[2018-12-18] MEDS ORDERED: Levothyroxine Sodium 125 MCG TAB PO SCH (06:00)
[2018-12-18] MEDS ORDERED: Mometasone/Formoterol 120 PUFF INHALER INH SCH ×2 (06:30→21:00)
[2018-12-18] MEDS: clonazePAM 0.5 MG TAB PO SCH (08:08)
[2018-12-18] MEDS: Carvedilol 6.25 MG TAB PO SCH (08:09)
[2018-12-18] MEDS: Famotidine 20 MG TAB PO SCH (08:10)
[2018-12-18] MEDS: Gabapentin 100 MG CAP PO SCH ×2 (08:10→15:00)
[2018-12-18] MEDS ORDERED: Furosemide 40 MG TAB PO SCH (09:00)
[2018-12-18] MEDS ORDERED: Atorvastatin Calcium 20 MG TAB PO SCH (09:00)
[2018-12-18] MEDS ORDERED: Enoxaparin Sodium 40 MG/0.4 ML SYRINGE SC SCH (09:00)
[2018-12-18] MEDS ORDERED: Citalopram 20 MG TAB PO SCH (09:00)
[2018-12-18] MEDS ORDERED: Aspirin 81 mg Enteric Coated Tablet PO SCH (09:00)
[2018-12-18] MEDS ORDERED: Lisinopril 20 MG TAB PO SCH (09:00)
--- NOTE | 2018-12-18 15:04 | CON ---
DATE OF CONSULTATION: 12/18/2018 HISTORY OF PRESENT ILLNESS: Ms. Morrison is a very pleasant patient with a history of nonischemic cardiomyopathy with previous biventricular pacemaker, admitted with chest pain. The patient's pain started yesterday. She has had some intense dizziness, later had pain in the middle of her chest going across her chest. In addition to this, she has the sharp intermittent pain under the left breast, which she has had off and on for many years. Her cardiac enzymes were negative. She feels fine now. When she got nitroglycerin paste, that helped her discomfort. PAST MEDICAL HISTORY: She has a long history of chest pain. She underwent multiple cardiac catheterizations due to recurrent pain and multiple admissions to the hospital. In fact, she underwent cardiac catheterization and coronary angiogram in 2000, 2004, 2008, and then again finally in 2009. There is no obstructive coronary disease. She also underwent biventricular pacemaker insertion in 2008 and this has helped her tremendously. Her ejection fraction is now normal. PHYSICAL EXAMINATION: GENERAL: The patient is doing well now. VITAL SIGNS: Blood pressure 140/60 and pulse 70. LUNGS: Clear. CARDIAC: Normal S1, normal S2. ABDOMEN: Soft and nontender. EXTREMITIES: Warm and dry. No clubbing or cyanosis. No edema. LABORATORY DATA: Troponin less than 0.010. BNP 59. The OptiVol on the pacemaker shows normal function with no evidence of any heart failure. ASSESSMENT: 1. Intermittent chest pain. 2. Multiple cardiac catheterization in the past that show normal coronary arteries. 3. Stress test showing no ischemia within the last year. PLAN: Okay to go home. It is possible the patient could have coronary spasm. She will be encouraged to take nitroglycerin if needed for chest pain. Otherwise, continue the medicine same as prior to admission. Job ID: [id number]
[2018-12-18 15:51] VITALS: BP 188/79; TEMP 97.8
--- NOTE | 2018-12-18 18:57 | DIS ---
DATE OF ADMISSION: 12/17/2018 DATE OF DISCHARGE: 12/18/2018 CHIEF COMPLAINT: On admission, chest pain and dizziness. FINAL DIAGNOSES: 1. Intermittent chest pain, unclear etiology, multiple left heart catheterization negative along with a recent nuclear stress test performed 2018 in February, which was also negative. 2. History of Bi-V pacemaker with normal functioning. 3. Chronic COPD. 4. Chronic dizziness, consistent with vertigo. 5. Anxiety and depression. 6. Gastroesophageal reflux disease. 7. History of pulmonary embolism in the remote past. HOSPITAL COURSE: The patient is a pleasant 78-year-old lady with past medical history as outlined above, who presented to the hospital with complaints of chest pain. She described it as sharp and underneath the left breast. She also had some associated dizziness, although she states that she has the dizziness fairly intermittently without the chest pain. The patient was seen in conjunction with Dr. Lloyd. Her chest pain was relieved with nitroglycerin paste in the ER. ACS was ruled out in this patient. Her Bi-V pacemaker was checked, which showed normal functioning. The patient's chest pain has completely resolved. She feels well today. She has no shortness of breath, nausea, or vomiting. Her appetite is good. Her troponin has been less than 0.010 and her BNP is negative. CONDITION AT DISCHARGE: Stable. DISCHARGE DISPOSITION: Home. CONSULTANTS: Dr. Lloyd. DISCHARGE INSTRUCTIONS AND PLAN: The patient will be discharged home today in good condition. Per Dr. Lloyd, she will be prescribed sublingual nitroglycerin to help with her chest pain if it recurs. Her workup here was negative. She will follow up with Dr. Lloyd in the office and along with her PCP, Dr. Moore. The care of this patient has been discussed with Dr. Perkins, who agrees with the above. Job ID: [id number]
== END 2018-12-18 17:52 | disposition home or self-care (01) ==
LOC: ERS 16:08 → 2SW 19:54
PROVIDERS: ADMIT Hospitalist; ATTEND Hospitalist
DX: R07.9 Chest pain, unspecified (principal); R42 Dizziness and giddiness; J44.9 Chronic obstructive pulmonary disease, unspecified; I11.0 Hypertensive heart disease with heart failure; I50.9 Heart failure, unspecified; G89.29 Other chronic pain; M54.9 Dorsalgia, unspecified; E78.5 Hyperlipidemia, unspecified; F41.9 Anxiety disorder, unspecified; I42.8 Other cardiomyopathies; K21.9 Gastro-esophageal reflux disease without esophagitis; F32.9 Major depressive disorder, single episode, unspecified; Z87.891 Personal history of nicotine dependence; Z79.82 Long term (current) use of aspirin; Z79.899 Other long term (current) drug therapy; Z95.0 Presence of cardiac pacemaker; Z99.81 Dependence on supplemental oxygen
CPT/HCPCS: 70450; 71045; 80048; 80053; 80061; 83036; 83690; 83880; 84439; 84443; 84481; 84484 ×2; 85025 ×2; 93005; 93306; 94640; 94664; 96372; 97139; 99285; G0378 ×2; 36415; J1650

== ENCOUNTER 2019-01-03 13:34 | Outpatient (CLI) | payer MEDICARE, BC ==
--- NOTE | 2019-01-03 14:43 | MMO ---
Bilateral MAMMO Bilat Screen [facility]. CLINICAL HISTORY: Patient is 78 years old and is seen for screening. The patient has no family history of breast cancer. The patient has no personal history of cancer. VIEWS: The views performed were: bilateral craniocaudal with tomosynthesis; bilateral mediolateral oblique with tomosynthesis; and right mediolateral oblique. FILMS COMPARED: The present examination has been compared to prior imaging studies performed at [facility] on 01/12/2014, 01/14/2015, 01/16/2016 and 03/15/2017. MAMMOGRAM FINDINGS: There are scattered fibroglandular densities. There are no suspicious masses, calcifications or areas of architectural distortion. There are benign appearing calcifications in both breasts. There are no suspicious masses, suspicious calcifications, or new areas of architectural distortion. IMPRESSION: THERE IS NO MAMMOGRAPHIC EVIDENCE OF MALIGNANCY. A ROUTINE FOLLOW-UP MAMMOGRAM IN 1 YEAR IS RECOMMENDED. THE RESULTS OF THIS EXAM WERE SENT TO THE PATIENT. ACR BI-RADS Category 2 - Benign finding MAMMOGRAPHY NOTE: 1. A negative mammogram report should not delay a biopsy if a dominant of clinically suspicious mass is present. 2. Approximately 10% to 15% of breast cancers are not detected by mammography. 3. Adenosis and dense breasts may obscure an underlying neoplasm.
== END 2019-01-03 13:35 | disposition home or self-care (01) ==
LOC: BICMAMMO 13:34
PROVIDERS: ATTEND Internal Medicine
DX: Z12.31 Encounter for screening mammogram for malignant neoplasm of breast (principal)
CPT/HCPCS: 77063; 77067

== ENCOUNTER 2020-01-23 13:18 | Outpatient (CLI) | payer MEDICARE, BC ==
--- NOTE | 2020-01-23 14:10 | MMO ---
Bilateral MAMMO Bilat Screen [facility]. CLINICAL HISTORY: Patient is 79 years old and is seen for screening. The patient has no family history of breast cancer. The patient has no personal history of cancer. VIEWS: The views performed were: bilateral craniocaudal with tomosynthesis; bilateral mediolateral oblique; and bilateral mediolateral oblique with tomosynthesis. FILMS COMPARED: The present examination has been compared to prior imaging studies performed at [facility] on 01/14/2015, 01/16/2016, 03/15/2017 and 01/03/2019. This study has been interpreted with the assistance of computer-aided detection. MAMMOGRAM FINDINGS: There are scattered fibroglandular densities. There are benign appearing calcifications seen in both breasts. There are no suspicious masses, suspicious calcifications, or new areas of architectural distortion. IMPRESSION: THERE IS NO MAMMOGRAPHIC EVIDENCE OF MALIGNANCY. A ROUTINE FOLLOW-UP MAMMOGRAM IN 1 YEAR IS RECOMMENDED. THE RESULTS OF THIS EXAM WERE SENT TO THE PATIENT. ACR BI-RADS Category 2 - Benign finding MAMMOGRAPHY NOTE: 1. A negative mammogram report should not delay a biopsy if a dominant of clinically suspicious mass is present. 2. Approximately 10% to 15% of breast cancers are not detected by mammography. 3. Adenosis and dense breasts may obscure an underlying neoplasm. Reported by: DEJAN EPSTEIN MD Electonically Signed: [id number]
== END 2020-01-23 13:19 | disposition home or self-care (01) ==
LOC: BICMAMMO 13:18
PROVIDERS: ATTEND Internal Medicine
DX: Z12.31 Encounter for screening mammogram for malignant neoplasm of breast (principal)
CPT/HCPCS: 77063; 77067

== ENCOUNTER 2020-05-28 09:17 | Emergency (ER) | payer MEDICARE, BC ==
--- NOTE | 2020-05-28 11:43 | RAD ---
LEFT KNEE 4 VIEWS: Date; 05/28/2020 HISTORY: left knee pain for several months, getting worse. FINDINGS/IMPRESSION: Diffuse bone demineralization. Tricompartment arthrosis and degenerative change. No significant abnor mal joint effusion. No fracture or dislocation. POS: RRE
== END 2020-05-28 11:54 | disposition home or self-care (01) ==
LOC: ERS 09:17
DX: M25.562 Pain in left knee (principal); E78.5 Hyperlipidemia, unspecified; E78.00 Pure hypercholesterolemia, unspecified; I11.0 Hypertensive heart disease with heart failure; I50.9 Heart failure, unspecified; J44.9 Chronic obstructive pulmonary disease, unspecified; F41.9 Anxiety disorder, unspecified

== ENCOUNTER 2020-11-04 11:20 | Emergency (ER) | payer MEDICARE, BC ==
[2020-11-04 12:48] LABS: #Eosinphils 0.2 thou/uL (0.0-0.7); #Neutrophils 5.4 thou/uL (1.40-6.50); %Basophils 0.2 % (0.0-1.0); %Eosinophils 2.1 % (0.0-10.0); %Lymphocytes 38.2 % (21.0-51.0); %Neutrophils 50.5 % (42.0-75.0); Hemoglobin 12.2 g/dL (12.0-16.0); Mean Corpuscular HGB CONC 33.9 g/dL (32.0-36.0); Mean Corpuscular Hemoglobin 31.8 pg (27.0-31.0); Mean Corpuscular Volume 93.9 fL (78.0-98.0); Mean Platelet Volume 7.4 fL (7.4-10.4); Platelet Count 218 thou/uL (130-400); RBC Distribution Width 12.5 % (11.5-14.5); Red Blood Cell (RBC) Count 3.82 mill/uL (4.20-5.40); White Blood Cell (WBC) Count 10.6 thou/uL (4.8-10.8)
[2020-11-04 13:04] LABS: ALT (SGPT) 18 U/L (8-55); AST (SGOT) 17 U/L (5-34); Albumin 3.9 g/dL (3.4-4.8); Alkaline Phosphatase 73 U/L (40-110); Anion Gap 15 mmol/L (10-20); BUN (Urea Nitrogen) 21 mg/dL (9.8-20.1); Bilirubin, Total 0.4 mg/dL (0.2-1.2); Calc. Creatinine Clearance 0 mL/min (70-130); Calcium 9.3 mg/dL (7.8-10.44); Carbon Dioxide 30 mmol/L (23-31); Chloride 100 mmol/L (98-107); Globulin 2.9 g/dL (2.4-3.5); Glucose 101 mg/dL (83-110); Potassium 4.3 mmol/L (3.5-5.1); Protein, Total 6.8 g/dL (5.8-8.1); Sodium 141 mmol/L (136-145)
== END 2020-11-04 14:13 | disposition home or self-care (01) ==
LOC: ERS 11:20
DX: R06.02 Shortness of breath (principal); E78.5 Hyperlipidemia, unspecified; E78.00 Pure hypercholesterolemia, unspecified; I11.0 Hypertensive heart disease with heart failure; I50.9 Heart failure, unspecified; J44.9 Chronic obstructive pulmonary disease, unspecified; Z87.891 Personal history of nicotine dependence; Z79.82 Long term (current) use of aspirin; Z79.899 Other long term (current) drug therapy; Z79.84 Long term (current) use of oral hypoglycemic drugs
CPT/HCPCS: 36415; 71045; 80053; 83880; 84484; 85025; 93005

== ENCOUNTER 2021-06-26 17:41 | Emergency (ER) | payer MEDICARE, BC ==
[2021-06-26 18:15] LABS: #Basophils 0.1 thou/uL (0.0-0.2); #Eosinphils 0.3 thou/uL (0.0-0.7); #Lymphocytes 4.8 thou/uL (1.20-3.40); #Monocytes 1.7 thou/uL (0.11-0.59); #Neutrophils 5.7 thou/uL (1.40-6.50); %Basophils 0.6 % (0.0-1.0); %Eosinophils 2.6 % (0.0-10.0); %Lymphocytes 38.2 % (21.0-51.0); %Monocytes 13.4 % (0.0-10.0); %Neutrophils 45.3 % (42.0-75.0); Hemoglobin 12.4 g/dL (12.0-16.0); Mean Corpuscular Hemoglobin 29.3 pg (27.0-31.0); Mean Corpuscular Volume 88.9 fL (78.0-98.0); Mean Platelet Volume 6.7 fL (7.4-10.4); Platelet Count 271 thou/uL (130-400); RBC Distribution Width 14.4 % (11.5-14.5); Red Blood Cell (RBC) Count 4.21 mill/uL (4.20-5.40); White Blood Cell (WBC) Count 12.5 thou/uL (4.8-10.8)
[2021-06-26] MEDS ORDERED: Morphine 4 MG/ML VIAL ONE ×2 (18:31→21:12)
[2021-06-26] MEDS ORDERED: Ketorolac Tromethamine 30 MG/ML VIAL ONE (18:32)
[2021-06-26] MEDS ORDERED: Acetaminophen 500 MG TAB ONE (18:32)
[2021-06-26 18:34] LABS: ALT (SGPT) 21 U/L (8-55); AST (SGOT) 20 U/L (5-34); Albumin 4.1 g/dL (3.4-4.8); Alkaline Phosphatase 75 U/L (40-110); Anion Gap 16 mmol/L (10-20); BUN (Urea Nitrogen) 35 mg/dL (9.8-20.1); Bilirubin, Total 0.5 mg/dL (0.2-1.2); Calc. Creatinine Clearance 0 mL/min (70-130); Calcium 9.7 mg/dL (7.8-10.44); Carbon Dioxide 22 mmol/L (23-31); Chloride 106 mmol/L (98-107); Glucose 112 mg/dL (83-110); Potassium 4.5 mmol/L (3.5-5.1); Protein, Total 7.1 g/dL (5.8-8.1); Sodium 139 mmol/L (136-145)
== END 2021-06-26 23:30 | disposition home or self-care (01) ==
LOC: ERS 17:41
DX: S29.012A Strain of muscle and tendon of back wall of thorax, initial encounter (principal); I10 Essential (primary) hypertension; M54.10 Radiculopathy, site unspecified; I11.0 Hypertensive heart disease with heart failure; E78.5 Hyperlipidemia, unspecified; J44.9 Chronic obstructive pulmonary disease, unspecified; Z87.891 Personal history of nicotine dependence; Z79.899 Other long term (current) drug therapy; Z79.82 Long term (current) use of aspirin; X50.9XXA Other and unspecified overexertion or strenuous movements or postures, initial encounter
CPT/HCPCS: 36415; 71045; 80053; 84484; 85025; 93005; 96365; 96366; 96368; 96376; J1885; J2270

== ENCOUNTER 2022-06-09 14:05 | Outpatient (CLI) | payer MEDICARE | END 2022-06-09 14:06 | disposition home or self-care (01) | LOC: BICMAMMO 14:05 | PROVIDERS: ATTEND Nurse Practitioner Family | DX: N63.0 Unspecified lump in unspecified breast (principal); R92.8 Other abnormal and inconclusive findings on diagnostic imaging of breast | CPT/HCPCS: 76642; 77066; G0279 ==

== ENCOUNTER 2022-09-26 09:32 | Emergency (ER) | payer MEDICARE ==
[2022-09-26] MEDS ORDERED: Ipratropium/Albuterol 3 ML NEB ONE (10:32)
[2022-09-26] MEDS ORDERED: Magnesium 2 GM/50 ML BAG (IN WATER) ONE (10:37)
[2022-09-26] MEDS ORDERED: methylPREDNISolone Sod Succ/PF 125 MG/2 ML VIAL ONE (10:37)
[2022-09-26 10:57] LABS: #Eosinphils 0.5 thou/uL (0.0-0.7); #Lymphocytes 1.8 thou/uL (1.20-3.40); %Basophils 0.5 % (0.0-1.0); %Eosinophils 6.5 % (0.0-10.0); %Lymphocytes 24.6 % (21.0-51.0); %Monocytes 13.3 % (0.0-10.0); %Neutrophils 55.1 % (42.0-75.0); Hemoglobin 12.4 g/dL (12.0-16.0); Mean Corpuscular HGB CONC 34.4 g/dL (32.0-36.0); Mean Corpuscular Hemoglobin 34.1 pg (27.0-31.0); Mean Corpuscular Volume 99.2 fl (78.0-98.0); Mean Platelet Volume 7.3 fL (7.4-10.4); Platelet Count 169 10x3/uL (130-400); RBC Distribution Width 11.6 % (11.5-14.5); Red Blood Cell (RBC) Count 3.64 mill/uL (4.20-5.40); White Blood Cell (WBC) Count 7.2 10x3/uL (4.8-10.8)
[2022-09-26 11:17] LABS: ALT (SGPT) 21 U/L (8-55); AST (SGOT) 25 U/L (5-34); Albumin 4.4 g/dL (3.4-4.8); Alkaline Phosphatase 58 U/L (40-110); Anion Gap 13 mmol/L (10-20); BUN (Urea Nitrogen) 30 mg/dL (9.8-20.1); Bilirubin, Total 0.5 mg/dL (0.2-1.2); Calc. Creatinine Clearance 0 mL/min (70-130); Calcium 9.4 mg/dL (7.8-10.44); Carbon Dioxide 27 mmol/L (23-31); Chloride 103 mmol/L (98-107); Estimated GFR 38; Globulin 2.8 g/dL (2.4-3.5); Glucose 114 mg/dL (83-110); Potassium 4.3 mmol/L (3.5-5.1); Protein, Total 7.2 g/dL (5.8-8.1); Sodium 139 mmol/L (136-145)
[2022-09-26] MEDS ORDERED: cefTRIAXone\\ROCEPHIN 2 GM VIAL ONE (12:38)
== END 2022-09-26 13:31 | disposition home or self-care (01) ==
LOC: ERS 09:32
DX: J18.9 Pneumonia, unspecified organism (principal); E78.00 Pure hypercholesterolemia, unspecified; I11.0 Hypertensive heart disease with heart failure; I50.9 Heart failure, unspecified; J44.9 Chronic obstructive pulmonary disease, unspecified; Z87.891 Personal history of nicotine dependence; Z79.899 Other long term (current) drug therapy; Z79.82 Long term (current) use of aspirin
CPT/HCPCS: 36415; 71045; 80053; 83605; 84484; 85025; 87040; 93005; 94640; 96365; 96375; J0696; J2930; J3475; J7620

== ENCOUNTER 2022-12-07 11:11 | Inpatient (IN) | payer MEDICARE ==
[~2022-12-07 11:11] MED LIST changes: -ISOVUE-370 76%-LOCM 1 ML ONE; +Iopamidol-370 76% 500 ML MDV (1 ML CHARGE) ONE
[2022-12-07 11:31] LABS: #Basophils 0.1 thou/uL (0.0-0.2); #Eosinphils 0.3 thou/uL (0.0-0.7); #Monocytes 1.1 thou/uL (0.11-0.59); #Neutrophils 2.9 thou/uL (1.40-6.50); %Basophils 0.7 % (0.0-1.0); %Eosinophils 4.5 % (0.0-10.0); %Lymphocytes 42.3 % (21.0-51.0); %Monocytes 14.2 % (0.0-10.0); %Neutrophils 37.9 % (42.0-75.0); Mean Corpuscular HGB CONC 31.8 g/dL (32.0-36.0); Mean Corpuscular Hemoglobin 31.4 pg (27.0-31.0); Mean Corpuscular Volume 98.7 fl (78.0-98.0); Mean Platelet Volume 9.1 fL (7.4-10.4); Platelet Count 178 10x3/uL (130-400); RBC Distribution Width 12.3 % (11.5-14.5); Red Blood Cell (RBC) Count 3.82 mill/uL (4.20-5.40); White Blood Cell (WBC) Count 7.6 10x3/uL (4.8-10.8)
[2022-12-07 11:44] LABS: ALT (SGPT) 18 U/L (8-55); AST (SGOT) 20 U/L (5-34); Alkaline Phosphatase 52 U/L (40-110); Anion Gap 13 mmol/L (10-20); BUN (Urea Nitrogen) 23 mg/dL (9.8-20.1); Bilirubin, Total 0.3 mg/dL (0.2-1.2); Calc. Creatinine Clearance 0 mL/min (70-130); Calcium 9.6 mg/dL (7.8-10.44); Carbon Dioxide 26 mmol/L (23-31); Chloride 104 mmol/L (98-107); Estimated GFR 46; Globulin 2.9 g/dL (2.4-3.5); Glucose 113 mg/dL (83-110); Potassium 4.4 mmol/L (3.5-5.1); Protein, Total 6.9 g/dL (5.8-8.1); Sodium 139 mmol/L (136-145)
[2022-12-07 12:10] LABS: PTT 27.4 sec (22.9-36.1)
[2022-12-07] MEDS ORDERED: Morphine 4 MG/ML VIAL ONE (13:24)
[2022-12-07] MEDS ORDERED: Acetaminophen 500 MG TAB ONE (13:25)
[2022-12-07] MEDS ORDERED: Ondansetron PF 4 MG/2 ML Vial ONE (13:25)
[2022-12-07] MEDS ORDERED: Aspirin 325 MG TAB ONE (13:25)
[2022-12-07] MEDS ORDERED: Ondansetron PF 4 MG/2 ML Vial IVP PRN (14:30)
[2022-12-07] MEDS ORDERED: Ondansetron ODT 4 MG TAB SL PRN (14:30)
[2022-12-07] MEDS ORDERED: Sodium Chloride 0.9% 1,000 ML IV SCH (14:30)
[2022-12-07] MEDS ORDERED: Acetaminophen 325 MG TAB PO PRN (14:30)
[2022-12-07] MEDS ORDERED: traZODone HCl 50 MG TAB PO PRN (16:10)
[2022-12-07] MEDS ORDERED: Ipratropium/Albuterol 3 ML NEB NEB PRN (16:10)
[2022-12-07] MEDS ORDERED: hydrALAZINE 20 MG/ML VIAL SLOW IVP PRN (16:10)
[2022-12-07] MEDS ORDERED: Metoclopramide HCl 10 MG/2 ML VIAL IVP PRN (16:19)
[2022-12-07] MEDS ORDERED: Carvedilol 3.125 MG TAB PO SCH (17:00)
[2022-12-07] MEDS: Acetaminophen 325 MG TAB PO SCH ×2 (18:31→21:18)
[2022-12-07] MEDS: Artificial Tear Sol 15 ML BOT R EYE SCH ×2 (18:32→21:27)
[2022-12-07] MEDS ORDERED: Senokot S 8.6-50 MG TAB PO SCH (21:00)
[2022-12-07] MEDS ORDERED: Gabapentin 100 MG CAP PO SCH (21:00)
[2022-12-07] MEDS: HYDROcodone/Acetaminophen 5/325 mg Tablet PO PRN (21:12)
[2022-12-07] MEDS: Atorvastatin Calcium 40 MG TAB PO SCH (21:17)
[2022-12-07] MEDS: MINERAL OIL/WHITE PETROLATUM 3.5 GM TUBE EA EYE SCH (21:26)
[2022-12-08] MEDS: HYDROcodone/Acetaminophen 5/325 mg Tablet PO PRN ×2 (04:00→15:38)
[2022-12-08 05:21] LABS: #Basophils 0.1 thou/uL (0.0-0.2); #Eosinphils 0.4 thou/uL (0.0-0.7); #Monocytes 1.2 thou/uL (0.11-0.59); %Basophils 0.6 % (0.0-1.0); %Eosinophils 4.9 % (0.0-10.0); %Lymphocytes 26.5 % (21.0-51.0); %Monocytes 12.7 % (0.0-10.0); Mean Corpuscular HGB CONC 31.7 g/dL (32.0-36.0); Mean Corpuscular Hemoglobin 32.3 pg (27.0-31.0); Platelet Count 175 10x3/uL (130-400); RBC Distribution Width 12.5 % (11.5-14.5); Red Blood Cell (RBC) Count 3.72 mill/uL (4.20-5.40)
[2022-12-08 05:42] LABS: Anion Gap 12 mmol/L (10-20); BUN (Urea Nitrogen) 22 mg/dL (9.8-20.1); Calc. Creatinine Clearance 40 mL/min (70-130); Carbon Dioxide 27 mmol/L (23-31); Cardiac Risk 3.4 (Less than 4.5); Chloride 104 mmol/L (98-107); Cholesterol 143 mg/dl (< 200 Desired); Estimated GFR 38; Glucose 120 mg/dL (83-110); HDL Cholesterol 42 mg/dL (>60 Neg Risk); LDL Cholesterol, Calculated 76 mg/dL; Potassium 4.4 mmol/L (3.5-5.1); Sodium 139 mmol/L (136-145); Triglycerides 126 mg/dL (Less than 150)
[2022-12-08 05:44] LABS: Mean Corpuscular Volume 101.9 fl (78.0-98.0)
[2022-12-08] MEDS ORDERED: Levothyroxine Sodium 112 MCG TAB PO SCH (06:00)
[2022-12-08] MEDS ORDERED: Lorazepam 0.5 MG TAB PO PRN (07:42)
[2022-12-08] MEDS ORDERED: Non-Formulary Item 1 EACH (Cyclobenzaprine Hcl [Cyclobenzaprine Hcl] 5 MG Tablet) PO PRN (07:42)
[2022-12-08] MEDS ORDERED: Cyclobenzaprine 10 MG TAB PO PRN (07:49)
[2022-12-08] MEDS: Citalopram 20 MG TAB PO SCH (08:54)
[2022-12-08] MEDS: Lisinopril 20 MG TAB PO SCH (08:54)
[2022-12-08] MEDS: Gabapentin 100 MG CAP PO SCH (08:54)
[2022-12-08] MEDS: Bupropion 150 MG XL TAB PO SCH (08:55)
[2022-12-08] MEDS: Levothyroxine Sodium 112 MCG TAB PO SCH (08:55)
[2022-12-08] MEDS: Torsemide 20 MG TAB PO SCH (08:55)
[2022-12-08] MEDS: Ferrous Sulfate 325 MG TAB PO SCH (08:55)
[2022-12-08] MEDS: Acetaminophen 325 MG TAB PO SCH ×4 (08:55→21:03)
[2022-12-08] MEDS: Aspirin 325 mg Enteric Coated Tablet PO SCH (08:55)
[2022-12-08] MEDS ORDERED: Citalopram 20 MG TAB PO SCH (09:00)
[2022-12-08] MEDS ORDERED: Non-Formulary Item 1 EACH (Carvedilol [Coreg] 12.5 MG Tablet) PO SCH (09:00)
[2022-12-08] MEDS ORDERED: Non-Formulary Item 1 EACH (Ferrous Sulfate [Ferrous Sulfate] 325 MG Tab) PO SCH (09:00)
[2022-12-08] MEDS ORDERED: Polyethylene Glycol 3350 17 GM Packet PO SCH (09:00)
[2022-12-08] MEDS ORDERED: Bupropion 150 MG XL TAB PO SCH (09:00)
[2022-12-08] MEDS ORDERED: Non-Formulary Item 1 EACH (Citalopram Hydrobromide [Citalopram Hbr] 40 MG Tablet) PO SCH (09:00)
[2022-12-08] MEDS: Artificial Tear Sol 15 ML BOT R EYE SCH ×4 (09:03→21:05)
[2022-12-08] MEDS: Senokot S 8.6-50 MG TAB PO SCH (09:05)
[2022-12-08] MEDS: Polyethylene Glycol 3350 17 GM Packet PO SCH (09:05)
[2022-12-08] MEDS ORDERED: traMADol HCl 50 MG TAB PO PRN (10:37)
[2022-12-08] MEDS: Carvedilol 6.25 MG TAB PO SCH (11:01)
[2022-12-08] MEDS: Acyclovir 400 mg Tablet PO SCH ×4 (12:37→23:29)
[2022-12-08] MEDS ORDERED: HYDROcodone/Acetaminophen 5/325 mg Tablet PO PRN (15:02)
[2022-12-08] MEDS: methylPREDNISolone Sod Succ 40 MG VIAL IVP SCH ×2 (17:07→23:29)
[2022-12-08] MEDS ORDERED: Non-Formulary Item 1 EACH (Trazodone Hcl [Trazodone Hcl] 100 MG Tablet) PO SCH (21:00)
[2022-12-08] MEDS: traZODone HCl 50 MG TAB PO SCH (21:03)
[2022-12-08] MEDS: Atorvastatin Calcium 40 MG TAB PO SCH (21:04)
[2022-12-08] MEDS: MINERAL OIL/WHITE PETROLATUM 3.5 GM TUBE EA EYE SCH (21:07)
[2022-12-09] MEDS: methylPREDNISolone Sod Succ 40 MG VIAL IVP SCH ×3 (05:39→19:13)
[2022-12-09] MEDS: Torsemide 20 MG TAB PO SCH (09:05)
[2022-12-09] MEDS: Ferrous Sulfate 325 MG TAB PO SCH (09:05)
[2022-12-09] MEDS: Aspirin 325 mg Enteric Coated Tablet PO SCH (09:05)
[2022-12-09] MEDS: Citalopram 20 MG TAB PO SCH (09:05)
[2022-12-09] MEDS: Carvedilol 6.25 MG TAB PO SCH (09:05)
[2022-12-09] MEDS: Acyclovir 400 mg Tablet PO SCH ×4 (09:06→20:41)
[2022-12-09] MEDS: Gabapentin 100 MG CAP PO SCH (09:06)
[2022-12-09] MEDS: Senokot S 8.6-50 MG TAB PO SCH (09:06)
[2022-12-09] MEDS: Bupropion 150 MG XL TAB PO SCH (09:07)
[2022-12-09] MEDS: Levothyroxine Sodium 112 MCG TAB PO SCH (09:07)
[2022-12-09] MEDS: Acetaminophen 325 MG TAB PO SCH ×4 (09:07→20:40)
[2022-12-09] MEDS: Lisinopril 20 MG TAB PO SCH (09:08)
[2022-12-09] MEDS: Polyethylene Glycol 3350 17 GM Packet PO SCH (09:08)
[2022-12-09] MEDS: Artificial Tear Sol 15 ML BOT R EYE SCH ×4 (09:08→20:43)
[2022-12-09] MEDS: HYDROcodone/Acetaminophen 5/325 mg Tablet PO PRN (12:36)
[2022-12-09] MEDS: Atorvastatin Calcium 40 MG TAB PO SCH (20:40)
[2022-12-09] MEDS: traZODone HCl 50 MG TAB PO SCH (20:40)
[2022-12-09] MEDS: MINERAL OIL/WHITE PETROLATUM 3.5 GM TUBE EA EYE SCH (20:43)
[2022-12-09 22:44] VITALS: BMI 32.2
[2022-12-10] MEDS: Acyclovir 400 mg Tablet PO SCH ×3 (00:26→12:40)
[2022-12-10] MEDS: methylPREDNISolone Sod Succ 40 MG VIAL IVP SCH ×2 (00:27→06:01)
[2022-12-10] MEDS: Ferrous Sulfate 325 MG TAB PO SCH (08:45)
[2022-12-10] MEDS: Levothyroxine Sodium 112 MCG TAB PO SCH (08:51)
[2022-12-10] MEDS: Polyethylene Glycol 3350 17 GM Packet PO SCH (08:51)
[2022-12-10] MEDS: Carvedilol 6.25 MG TAB PO SCH (08:52)
[2022-12-10] MEDS: Citalopram 20 MG TAB PO SCH (08:53)
[2022-12-10] MEDS: Gabapentin 100 MG CAP PO SCH (08:54)
[2022-12-10] MEDS: Bupropion 150 MG XL TAB PO SCH (08:54)
[2022-12-10] MEDS: Lisinopril 20 MG TAB PO SCH (08:55)
[2022-12-10] MEDS: Torsemide 20 MG TAB PO SCH (08:55)
[2022-12-10] MEDS: Aspirin 325 mg Enteric Coated Tablet PO SCH (08:55)
[2022-12-10] MEDS: Artificial Tear Sol 15 ML BOT R EYE SCH ×2 (08:58→12:43)
[2022-12-10] MEDS: Acetaminophen 325 MG TAB PO SCH ×2 (09:11→14:05)
[2022-12-10] MEDS: Senokot S 8.6-50 MG TAB PO SCH (09:12)
[2022-12-10] MEDS ORDERED: predniSONE 20 MG TAB PO SCH (12:00)
[2022-12-10 12:14] VITALS: TEMP 98.7
[2022-12-10 12:45] VITALS: BP 147/64
== END 2022-12-10 13:55 | disposition home health service (06) | DRG 74 ==
LOC: ERS 11:11 → ERHOLD 14:18 → NEURO 17:29 → OBSVTOIN 12-08 15:10
PROVIDERS: ADMIT Family Medicine; ATTEND Internal Medicine
DX: G51.0 Bell's palsy (principal); I13.0 Hypertensive heart and chronic kidney disease with heart failure and stage 1 through stage 4 chronic kidney disease, or unspecified chronic kidney disease; J96.11 Chronic respiratory failure with hypoxia; E78.5 Hyperlipidemia, unspecified; I50.9 Heart failure, unspecified; J44.9 Chronic obstructive pulmonary disease, unspecified; E03.9 Hypothyroidism, unspecified; K21.9 Gastro-esophageal reflux disease without esophagitis; N18.30 Chronic kidney disease, stage 3 unspecified; F39 Unspecified mood [affective] disorder; K59.00 Constipation, unspecified; E66.9 Obesity, unspecified; F41.9 Anxiety disorder, unspecified; F32.A Depression, unspecified; E78.00 Pure hypercholesterolemia, unspecified; Z96.1 Presence of intraocular lens; G89.4 Chronic pain syndrome; G58.9 Mononeuropathy, unspecified; Z68.33 Body mass index [BMI] 33.0-33.9, adult; Z98.41 Cataract extraction status, right eye; Z98.42 Cataract extraction status, left eye; Z99.81 Dependence on supplemental oxygen; Z95.0 Presence of cardiac pacemaker; Z87.891 Personal history of nicotine dependence; Z98.890 Other specified postprocedural states; Z90.710 Acquired absence of both cervix and uterus; Z90.49 Acquired absence of other specified parts of digestive tract; Z86.711 Personal history of pulmonary embolism
CPT/HCPCS: 0042T; 36415; 36416; 70450; 70496; 70498; 71045; 80048; 80053; 80061; 84443; 84484; 85025; 85610; 85730; 93005; 93306; 94760; 96372; 96374; 96375; G0378; J1650; J2270; J2405; J2920; J7512; Q9967

== ENCOUNTER 2023-04-07 10:57 | Inpatient (IN) | payer MEDICARE ==
[2023-04-07] MEDS ORDERED: HYDROcodone/Acetaminophen 10/325 mg Tablet ONE (12:48)
[2023-04-07 13:11] LABS: #Basophils 0.1 thou/uL (0.0-0.2); #Eosinphils 0.1 thou/uL (0.0-0.7); #Monocytes 1.2 thou/uL (0.11-0.59); #Neutrophils 5.6 thou/uL (1.40-6.50); %Basophils 0.6 % (0.0-1.0); %Eosinophils 1.2 % (0.0-10.0); %Lymphocytes 20.3 % (21.0-51.0); %Monocytes 13.5 % (0.0-10.0); %Neutrophils 64.3 % (42.0-75.0); Mean Corpuscular HGB CONC 33.3 g/dL (32.0-36.0); Mean Corpuscular Hemoglobin 32.5 pg (27.0-31.0); Mean Corpuscular Volume 97.5 fl (78.0-98.0); Mean Platelet Volume 9.2 fL (7.4-10.4); Platelet Count 165 10x3/uL (130-400); RBC Distribution Width 12.5 % (11.5-14.5); White Blood Cell (WBC) Count 8.6 10x3/uL (4.8-10.8)
[2023-04-07 13:43] LABS: ALT (SGPT) 16 U/L (8-55); AST (SGOT) 20 U/L (5-34); Albumin 4.2 g/dL (3.4-4.8); Alkaline Phosphatase 56 U/L (40-110); Anion Gap 14 mmol/L (10-20); BUN (Urea Nitrogen) 19 mg/dL (9.8-20.1); Bilirubin, Total 0.5 mg/dL (0.2-1.2); Calc. Creatinine Clearance 0 mL/min (70-130); Calcium 9.9 mg/dL (7.8-10.44); Carbon Dioxide 28 mmol/L (23-31); Chloride 100 mmol/L (98-107); Estimated GFR 50; Globulin 3.1 g/dL (2.4-3.5); Glucose 119 mg/dL (83-110); Potassium 3.9 mmol/L (3.5-5.1); Protein, Total 7.3 g/dL (5.8-8.1); Sodium 138 mmol/L (136-145)
[2023-04-07 15:37] LABS: Bacteria/HPF 2+ HPF (None Seen); Bilirubin Negative (Negative); Blood, Urine Trace (Negative); CAUTI Indications for Culture Pelvic or flank pain; Glucose, Urine (Dipstick) Normal (Negative); Ketone, Urine Negative (Negative); Leukocyte 500 Leu/uL (Negative); Nitrite Negative (Negative); Protein, Urine (Dipstick) Negative (Neg-Trace); Specific Gravity, Urine 1.012 (1.002-1.036); Squamous Epithelial None Seen HPF (0-3); Urobilinogen Normal mg/dL (Less than 2); WBC/HPF Greater than 50 HPF (0-3); pH, Urine 5.5 (5.0-9.0)
[2023-04-07 15:38] LABS: Clarity Cloudy (Clear)
[2023-04-07 15:39] LABS: Urine Culture Reflex Yes Yes
[2023-04-07] MEDS ORDERED: cefTRIAXone (ROCEPHIN) 1 GM VIAL ONE (16:16)
[2023-04-07] MEDS ORDERED: cefTRIAXone (ROCEPHIN) 2 GM VIAL ONE (16:27)
[2023-04-07] MEDS ORDERED: Ondansetron PF 4 MG/2 ML Vial ONE (17:32)
[2023-04-07] MEDS ORDERED: Morphine 4 MG/ML VIAL ONE (17:32)
[2023-04-07] MEDS ORDERED: Ondansetron PF 4 MG/2 ML Vial IVP PRN (20:13)
[2023-04-07] MEDS ORDERED: Ondansetron ODT 4 MG TAB PO PRN (20:13)
[2023-04-07 21:43] VITALS: BMI 31.4
[2023-04-08 05:27] LABS: #Monocytes 1.1 thou/uL (0.11-0.59); %Basophils 0.4 % (0.0-1.0); %Monocytes 15.6 % (0.0-10.0); %Neutrophils 56.7 % (42.0-75.0); Hematocrit 35.9 % (36.0-47.0); Hemoglobin 11.7 g/dL (12.0-16.0); Mean Corpuscular HGB CONC 32.6 g/dL (32.0-36.0); Mean Corpuscular Hemoglobin 32.1 pg (27.0-31.0); Mean Corpuscular Volume 98.4 fl (78.0-98.0); Mean Platelet Volume 9.2 fL (7.4-10.4); Platelet Count 129 10x3/uL (130-400); RBC Distribution Width 12.6 % (11.5-14.5); Red Blood Cell (RBC) Count 3.65 mill/uL (4.20-5.40); White Blood Cell (WBC) Count 7.1 10x3/uL (4.8-10.8)
[2023-04-08] MEDS: HYDROcodone/Acetaminophen 5/325 mg Tablet PO PRN ×4 (05:35→18:29)
[2023-04-08] MEDS: Levothyroxine Sodium 100 MCG TAB PO SCH (05:35)
[2023-04-08 05:57] LABS: Anion Gap 9 mmol/L (10-20); BUN (Urea Nitrogen) 16 mg/dL (9.8-20.1); Calc. Creatinine Clearance 63 mL/min (70-130); Calcium 8.8 mg/dL (7.8-10.44); Carbon Dioxide 29 mmol/L (23-31); Chloride 101 mmol/L (98-107); Estimated GFR 66; Glucose 124 mg/dL (83-110); Potassium 3.7 mmol/L (3.5-5.1); Sodium 135 mmol/L (136-145)
[2023-04-08] MEDS ORDERED: Gabapentin 100 MG CAP PO SCH (09:00)
[2023-04-08] MEDS: Senokot S 8.6-50 MG TAB PO SCH ×2 (09:53→20:47)
[2023-04-08] MEDS: Citalopram 20 MG TAB PO SCH (09:53)
[2023-04-08] MEDS: Aspirin 81 mg Enteric Coated Tablet PO SCH (09:53)
[2023-04-08] MEDS: Polyethylene Glycol 3350 17 GM Packet PO SCH (09:56)
[2023-04-08] MEDS: Artificial Tear Sol 15 ML BOT R EYE SCH ×4 (10:00→20:47)
[2023-04-08] MEDS: Carvedilol 6.25 MG TAB PO SCH (11:02)
[2023-04-08] MEDS: Acetaminophen 325 MG TAB PO PRN (11:33)
[2023-04-08] MEDS ORDERED: Lidocaine 4% Patch TD SCH (14:25)
[2023-04-08] MEDS: Gabapentin 300 MG CAP PO SCH ×2 (14:57→20:47)
[2023-04-08] MEDS: Lidocaine 4% Patch TD SCH (14:58)
[2023-04-08] MEDS: cefTRIAXone\\ROCEPHIN 1 GM in Sodium Chloride 0.9% 100 ML IVPB SCH (20:46)
[2023-04-08] MEDS: traZODone HCl 50 MG TAB PO SCH (20:47)
[2023-04-08] MEDS ORDERED: Atorvastatin Calcium 40 MG TAB PO SCH (21:00)
[2023-04-09 05:52] LABS: #Eosinphils 0.1 thou/uL (0.0-0.7); #Neutrophils 4.3 thou/uL (1.40-6.50); %Basophils 0.6 % (0.0-1.0); %Eosinophils 0.7 % (0.0-10.0); %Lymphocytes 25.8 % (21.0-51.0); %Monocytes 13.3 % (0.0-10.0); %Neutrophils 59.3 % (42.0-75.0); Mean Corpuscular HGB CONC 32.4 g/dL (32.0-36.0); Mean Corpuscular Hemoglobin 32.3 pg (27.0-31.0); Mean Corpuscular Volume 99.5 fl (78.0-98.0); Platelet Count 134 10x3/uL (130-400); RBC Distribution Width 12.6 % (11.5-14.5); Red Blood Cell (RBC) Count 3.72 mill/uL (4.20-5.40); White Blood Cell (WBC) Count 7.2 10x3/uL (4.8-10.8)
[2023-04-09] MEDS: Levothyroxine Sodium 100 MCG TAB PO SCH (06:07)
[2023-04-09] MEDS: Transdermal Patch Removal TOP SCH (06:07)
[2023-04-09 06:35] LABS: Anion Gap 11 mmol/L (10-20); BUN (Urea Nitrogen) 23 mg/dL (9.8-20.1); Calc. Creatinine Clearance 47 mL/min (70-130); Calcium 8.6 mg/dL (7.8-10.44); Carbon Dioxide 29 mmol/L (23-31); Chloride 101 mmol/L (98-107); Estimated GFR 47; Glucose 109 mg/dL (83-110); Sodium 137 mmol/L (136-145)
[2023-04-09] MEDS: Carvedilol 6.25 MG TAB PO SCH (10:04)
[2023-04-09] MEDS: Acetaminophen 325 MG TAB PO PRN ×2 (10:04→15:03)
[2023-04-09] MEDS: Gabapentin 300 MG CAP PO SCH ×3 (10:05→20:36)
[2023-04-09] MEDS: Aspirin 81 mg Enteric Coated Tablet PO SCH (10:05)
[2023-04-09] MEDS: Citalopram 20 MG TAB PO SCH (10:05)
[2023-04-09] MEDS: Polyethylene Glycol 3350 17 GM Packet PO SCH (10:06)
[2023-04-09] MEDS: Artificial Tear Sol 15 ML BOT R EYE SCH ×4 (10:06→20:40)
[2023-04-09] MEDS: Senokot S 8.6-50 MG TAB PO SCH ×2 (10:06→20:37)
[2023-04-09 12:00] LABS: SARS-CoV-2 NAA Rapid Test DETECTED (NotDetected)
[2023-04-09] MEDS ORDERED: Dexamethasone 4 MG TAB PO SCH (14:45)
[2023-04-09] MEDS: Lidocaine 4% Patch TD SCH (15:05)
[2023-04-09] MEDS: traZODone HCl 50 MG TAB PO SCH (20:36)
[2023-04-09] MEDS: cefTRIAXone\\ROCEPHIN 1 GM in Sodium Chloride 0.9% 100 ML IVPB SCH (20:36)
[2023-04-09] MEDS: (RENAL) NIRMATRELVIR 150 MG/RITONAVIR 100 MG TABLET PO SCH (21:07)
[2023-04-10] MEDS: HYDROcodone/Acetaminophen 5/325 mg Tablet PO PRN ×2 (03:42→09:03)
[2023-04-10] MEDS: Transdermal Patch Removal TOP SCH (04:13)
[2023-04-10] MEDS: Levothyroxine Sodium 100 MCG TAB PO SCH (05:47)
[2023-04-10 06:33] LABS: #Monocytes 0.3 thou/uL (0.11-0.59); #Neutrophils 2.1 thou/uL (1.40-6.50); %Basophils 0.3 % (0.0-1.0); %Lymphocytes 29.8 % (21.0-51.0); %Monocytes 7.3 % (0.0-10.0); %Neutrophils 62.3 % (42.0-75.0); Hematocrit 35.3 % (36.0-47.0); Hemoglobin 11.7 g/dL (12.0-16.0); Mean Corpuscular HGB CONC 33.1 g/dL (32.0-36.0); Mean Corpuscular Hemoglobin 32.2 pg (27.0-31.0); Mean Corpuscular Volume 97.2 fl (78.0-98.0); Mean Platelet Volume 9.5 fL (7.4-10.4); Platelet Count 133 10x3/uL (130-400); RBC Distribution Width 11.8 % (11.5-14.5); Red Blood Cell (RBC) Count 3.63 mill/uL (4.20-5.40); White Blood Cell (WBC) Count 3.4 10x3/uL (4.8-10.8)
[2023-04-10 07:00] LABS: Anion Gap 11 mmol/L (10-20); BUN (Urea Nitrogen) 23 mg/dL (9.8-20.1); Calc. Creatinine Clearance 59 mL/min (70-130); Calcium 9.1 mg/dL (7.8-10.44); Carbon Dioxide 30 mmol/L (23-31); Chloride 103 mmol/L (98-107); Estimated GFR 61; Glucose 170 mg/dL (83-110); Potassium 4.8 mmol/L (3.5-5.1); Sodium 139 mmol/L (136-145)
[2023-04-10] MEDS: Aspirin 81 mg Enteric Coated Tablet PO SCH (09:00)
[2023-04-10] MEDS: Dexamethasone 4 MG TAB PO SCH (09:00)
[2023-04-10] MEDS: Citalopram 20 MG TAB PO SCH ×2 (09:01→09:03)
[2023-04-10] MEDS: Gabapentin 300 MG CAP PO SCH ×3 (09:01→20:44)
[2023-04-10] MEDS: Carvedilol 6.25 MG TAB PO SCH (09:02)
[2023-04-10] MEDS: Artificial Tear Sol 15 ML BOT R EYE SCH ×3 (10:56→20:56)
[2023-04-10] MEDS: Polyethylene Glycol 3350 17 GM Packet PO SCH (10:56)
[2023-04-10] MEDS: Senokot S 8.6-50 MG TAB PO SCH ×2 (10:56→20:46)
[2023-04-10] MEDS ORDERED: Morphine ER 15 MG TAB PO SCH (13:02)
[2023-04-10] MEDS ORDERED: Naproxen 500 MG TAB PO SCH (14:30)
[2023-04-10] MEDS ORDERED: HYDROcodone/Acetaminophen 10/325 mg Tablet PO SCH (15:30)
[2023-04-10] MEDS: Lidocaine 4% Patch TD SCH (17:18)
[2023-04-10] MEDS: (RENAL) NIRMATRELVIR 150 MG/RITONAVIR 100 MG TABLET PO SCH ×2 (19:31→20:45)
[2023-04-10] MEDS: cefTRIAXone\\ROCEPHIN 1 GM in Sodium Chloride 0.9% 100 ML IVPB SCH (20:42)
[2023-04-10] MEDS: HYDROcodone/Acetaminophen 10/325 mg Tablet PO SCH (20:44)
[2023-04-10] MEDS: traZODone HCl 50 MG TAB PO SCH (20:46)
[2023-04-11] MEDS: HYDROcodone/Acetaminophen 10/325 mg Tablet PO SCH ×4 (02:21→21:58)
[2023-04-11] MEDS: Transdermal Patch Removal TOP SCH (02:22)
[2023-04-11] MEDS: Levothyroxine Sodium 100 MCG TAB PO SCH (05:10)
[2023-04-11 06:54] LABS: #Monocytes 0.4 thou/uL (0.11-0.59); #Neutrophils 5.1 thou/uL (1.40-6.50); %Lymphocytes 18.1 % (21.0-51.0); %Monocytes 5.5 % (0.0-10.0); %Neutrophils 76.1 % (42.0-75.0); Hemoglobin 11.8 g/dL (12.0-16.0); Mean Corpuscular HGB CONC 33.7 g/dL (32.0-36.0); Mean Corpuscular Hemoglobin 32.2 pg (27.0-31.0); Mean Corpuscular Volume 95.6 fl (78.0-98.0); Mean Platelet Volume 10.1 fL (7.4-10.4); Platelet Count 153 10x3/uL (130-400); RBC Distribution Width 11.7 % (11.5-14.5); Red Blood Cell (RBC) Count 3.66 mill/uL (4.20-5.40); White Blood Cell (WBC) Count 6.7 10x3/uL (4.8-10.8)
[2023-04-11 07:25] LABS: Anion Gap 12 mmol/L (10-20); BUN (Urea Nitrogen) 28 mg/dL (9.8-20.1); Calc. Creatinine Clearance 62 mL/min (70-130); Carbon Dioxide 29 mmol/L (23-31); Chloride 99 mmol/L (98-107); Estimated GFR 65; Glucose 177 mg/dL (83-110); Potassium 5.3 mmol/L (3.5-5.1); Sodium 135 mmol/L (136-145)
[2023-04-11] MEDS ORDERED: Dextrose 50% Abboject 50 ML SYRINGE SLOW IVP SCH (08:45)
[2023-04-11] MEDS ORDERED: Furosemide 20 MG/2 ML VIAL SLOW IVP SCH (08:45)
[2023-04-11] MEDS ORDERED: Insulin Regular 300 UNITS/3 ML VIAL IVP SCH (08:45)
[2023-04-11] MEDS: Artificial Tear Sol 15 ML BOT R EYE SCH ×4 (09:48→21:58)
[2023-04-11] MEDS: Gabapentin 300 MG CAP PO SCH ×3 (09:49→21:57)
[2023-04-11] MEDS: Aspirin 81 mg Enteric Coated Tablet PO SCH (09:49)
[2023-04-11] MEDS: Carvedilol 6.25 MG TAB PO SCH (09:49)
[2023-04-11] MEDS: Dexamethasone 4 MG TAB PO SCH (09:50)
[2023-04-11] MEDS: Senokot S 8.6-50 MG TAB PO SCH ×2 (09:50→21:57)
[2023-04-11] MEDS: Citalopram 20 MG TAB PO SCH (09:50)
[2023-04-11] MEDS: Polyethylene Glycol 3350 17 GM Packet PO SCH (09:50)
[2023-04-11] MEDS: (RENAL) NIRMATRELVIR 150 MG/RITONAVIR 100 MG TABLET PO SCH ×2 (09:54→21:59)
[2023-04-11] MEDS: Lidocaine 4% Patch TD SCH (16:47)
[2023-04-11] MEDS: cefTRIAXone\\ROCEPHIN 1 GM in Sodium Chloride 0.9% 100 ML IVPB SCH (21:51)
[2023-04-11] MEDS: traZODone HCl 50 MG TAB PO SCH (22:05)
[2023-04-12] MEDS: HYDROcodone/Acetaminophen 10/325 mg Tablet PO SCH ×2 (03:25→10:06)
[2023-04-12] MEDS: Transdermal Patch Removal TOP SCH (03:26)
[2023-04-12] MEDS: Levothyroxine Sodium 100 MCG TAB PO SCH (06:06)
[2023-04-12 06:35] LABS: #Monocytes 0.4 thou/uL (0.11-0.59); #Neutrophils 6.6 thou/uL (1.40-6.50); %Lymphocytes 14.8 % (21.0-51.0); %Monocytes 4.3 % (0.0-10.0); %Neutrophils 80.5 % (42.0-75.0); Hematocrit 35.8 % (36.0-47.0); Hemoglobin 11.9 g/dL (12.0-16.0); Mean Corpuscular HGB CONC 33.2 g/dL (32.0-36.0); Mean Corpuscular Hemoglobin 31.9 pg (27.0-31.0); Mean Platelet Volume 9.9 fL (7.4-10.4); Platelet Count 163 10x3/uL (130-400); RBC Distribution Width 11.7 % (11.5-14.5); Red Blood Cell (RBC) Count 3.73 mill/uL (4.20-5.40); White Blood Cell (WBC) Count 8.2 10x3/uL (4.8-10.8)
[2023-04-12 07:03] LABS: Anion Gap 11 mmol/L (10-20); BUN (Urea Nitrogen) 34 mg/dL (9.8-20.1); Calc. Creatinine Clearance 63 mL/min (70-130); Calcium 9.2 mg/dL (7.8-10.44); Carbon Dioxide 32 mmol/L (23-31); Chloride 99 mmol/L (98-107); Estimated GFR 66; Glucose 183 mg/dL (83-110); Potassium 5.3 mmol/L (3.5-5.1); Sodium 137 mmol/L (136-145)
[2023-04-12] MEDS ORDERED: Dextrose 50% Abboject 50 ML SYRINGE SLOW IVP SCH (09:15)
[2023-04-12] MEDS ORDERED: Insulin Regular 300 UNITS/3 ML VIAL IVP SCH (09:15)
[2023-04-12] MEDS: (RENAL) NIRMATRELVIR 150 MG/RITONAVIR 100 MG TABLET PO SCH ×2 (10:04→21:08)
[2023-04-12] MEDS: Citalopram 20 MG TAB PO SCH (10:05)
[2023-04-12] MEDS: Polyethylene Glycol 3350 17 GM Packet PO SCH (10:05)
[2023-04-12] MEDS: Dexamethasone 4 MG TAB PO SCH (10:05)
[2023-04-12] MEDS: Aspirin 81 mg Enteric Coated Tablet PO SCH (10:05)
[2023-04-12] MEDS: Gabapentin 300 MG CAP PO SCH ×3 (10:05→21:07)
[2023-04-12] MEDS: Senokot S 8.6-50 MG TAB PO SCH ×2 (10:05→21:07)
[2023-04-12] MEDS: Carvedilol 6.25 MG TAB PO SCH (10:06)
[2023-04-12] MEDS: Artificial Tear Sol 15 ML BOT R EYE SCH ×4 (10:10→21:07)
[2023-04-12] MEDS ORDERED: Morphine ER 15 MG TAB PO SCH (13:45)
[2023-04-12] MEDS: LOKELMA 10 GM PACKET PO SCH (13:51)
[2023-04-12] MEDS: Lidocaine 4% Patch TD SCH (17:02)
[2023-04-12] MEDS: cefTRIAXone\\ROCEPHIN 1 GM in Sodium Chloride 0.9% 100 ML IVPB SCH (21:06)
[2023-04-12] MEDS: traZODone HCl 50 MG TAB PO SCH (21:07)
[2023-04-12] MEDS: Morphine ER 15 MG TAB PO SCH (21:08)
[2023-04-13] MEDS: LOKELMA 10 GM PACKET PO SCH ×2 (00:03→01:29)
[2023-04-13] MEDS: Transdermal Patch Removal TOP SCH (03:27)
[2023-04-13] MEDS: Levothyroxine Sodium 100 MCG TAB PO SCH (05:12)
[2023-04-13 05:38] LABS: #Monocytes 0.4 thou/uL (0.11-0.59); #Neutrophils 5.4 thou/uL (1.40-6.50); %Lymphocytes 17.7 % (21.0-51.0); %Monocytes 5.6 % (0.0-10.0); %Neutrophils 75.9 % (42.0-75.0); Hematocrit 37.4 % (36.0-47.0); Hemoglobin 12.4 g/dL (12.0-16.0); Mean Corpuscular HGB CONC 33.2 g/dL (32.0-36.0); Mean Corpuscular Hemoglobin 31.6 pg (27.0-31.0); Mean Corpuscular Volume 95.4 fl (78.0-98.0); Mean Platelet Volume 9.9 fL (7.4-10.4); Platelet Count 168 10x3/uL (130-400); RBC Distribution Width 11.8 % (11.5-14.5); Red Blood Cell (RBC) Count 3.92 mill/uL (4.20-5.40); White Blood Cell (WBC) Count 7.1 10x3/uL (4.8-10.8)
[2023-04-13 06:12] LABS: Anion Gap 12 mmol/L (10-20); BUN (Urea Nitrogen) 31 mg/dL (9.8-20.1); Calc. Creatinine Clearance 60 mL/min (70-130); Calcium 9.4 mg/dL (7.8-10.44); Carbon Dioxide 31 mmol/L (23-31); Chloride 98 mmol/L (98-107); Estimated GFR 63; Glucose 246 mg/dL (83-110); Magnesium 2.6 mg/dL (1.6-2.6); Sodium 136 mmol/L (136-145)
[2023-04-13] MEDS ORDERED: LOKELMA 10 GM PACKET PO SCH (09:00)
[2023-04-13] MEDS: Aspirin 81 mg Enteric Coated Tablet PO SCH (10:07)
[2023-04-13] MEDS: Dexamethasone 4 MG TAB PO SCH (10:07)
[2023-04-13] MEDS: Citalopram 20 MG TAB PO SCH (10:07)
[2023-04-13] MEDS: Morphine ER 15 MG TAB PO SCH (10:08)
[2023-04-13] MEDS: Senokot S 8.6-50 MG TAB PO SCH (10:09)
[2023-04-13] MEDS: Artificial Tear Sol 15 ML BOT R EYE SCH (10:09)
[2023-04-13] MEDS: Carvedilol 6.25 MG TAB PO SCH (10:10)
[2023-04-13] MEDS: Gabapentin 300 MG CAP PO SCH (10:10)
[2023-04-13] MEDS: Polyethylene Glycol 3350 17 GM Packet PO SCH (11:42)
[2023-04-13] MEDS: (RENAL) NIRMATRELVIR 150 MG/RITONAVIR 100 MG TABLET PO SCH (11:42)
[2023-04-13 11:57] VITALS: BP 154/80; TEMP 97.7
[2023-04-15] MEDS ORDERED: Atorvastatin Calcium 40 MG TAB PO SCH (21:00)
== END 2023-04-13 16:28 | DRG 177 ==
LOC: ERS 10:57 → SURG A 19:40 → OBSVTOIN 04-09 10:14
PROVIDERS: ADMIT Student in an Organized Health Care Education/Training Program; ATTEND Internal Medicine
PROC: XW0DXF5 Introduction of Other New Technology Therapeutic Substance into Mouth and Pharynx, External Approach, New Technology Group 5 (ICD-10-PCS; principal; 2023-04-09)
PROC: 8E0ZXY6 Isolation (ICD-10-PCS; 2023-04-09)
DX: U07.1 COVID-19 (principal); J96.01 Acute respiratory failure with hypoxia; I13.0 Hypertensive heart and chronic kidney disease with heart failure and stage 1 through stage 4 chronic kidney disease, or unspecified chronic kidney disease; I50.32 Chronic diastolic (congestive) heart failure; N39.0 Urinary tract infection, site not specified; G89.29 Other chronic pain; J44.9 Chronic obstructive pulmonary disease, unspecified; N18.30 Chronic kidney disease, stage 3 unspecified; E03.9 Hypothyroidism, unspecified; E78.5 Hyperlipidemia, unspecified; K21.9 Gastro-esophageal reflux disease without esophagitis; Z96.642 Presence of left artificial hip joint; F41.9 Anxiety disorder, unspecified; E87.5 Hyperkalemia; Z79.82 Long term (current) use of aspirin; Z79.899 Other long term (current) drug therapy; Z90.49 Acquired absence of other specified parts of digestive tract; Z90.710 Acquired absence of both cervix and uterus; Z95.0 Presence of cardiac pacemaker
CPT/HCPCS: 36415; 70450; 72125; 74176; 80048; 80053; 81001; 83735; 85025; 87077; 87086; 87186; 87633; 93005; 96365; 96375; 96376; G0378; J0696; J1815; J1940; J2270; J2405; J3490; J8540; U0002

== ENCOUNTER 2023-07-29 11:55 | Outpatient (CLI) | payer BC, MEDICARE | END 2023-07-29 11:56 | disposition home or self-care (01) | LOC: BICRAD 11:55 | PROVIDERS: ATTEND Nurse Practitioner Family | DX: R05.1 Acute cough (principal) | CPT/HCPCS: 71046 ==

== ENCOUNTER 2023-11-29 11:05 | Outpatient (CLI) | payer MEDICARE | END 2023-11-29 11:06 | disposition home or self-care (01) | LOC: RAD 11:05 | PROVIDERS: ATTEND Family Medicine | DX: R51.9 Headache, unspecified (principal); R42 Dizziness and giddiness; I70.0 Atherosclerosis of aorta; S22.080D Wedge compression fracture of T11-T12 vertebra, subsequent encounter for fracture with routine healing; Z98.890 Other specified postprocedural states | CPT/HCPCS: 71046 ==

== ENCOUNTER 2023-11-30 07:15 | Outpatient (CLI) | payer MEDICARE ==
[2023-11-30] MEDS ORDERED: Magnevist 469MG/ML 20 ML VIAL ONE ×2 (09:42)
== END 2023-11-30 07:16 | disposition home or self-care (01) ==
LOC: MRI 07:15
PROVIDERS: ATTEND Family Medicine
DX: R51.9 Headache, unspecified (principal); R42 Dizziness and giddiness; I67.89 Other cerebrovascular disease; K11.8 Other diseases of salivary glands
CPT/HCPCS: 70544; 70549; 70553; A9579

== ENCOUNTER 2024-05-18 12:08 | Day surgery (SDC) | payer MEDICARE ==
[2024-05-17 09:40] VITALS: BMI 31.1
[2024-05-18] MEDS ORDERED: Bupivacaine 0.25% HCL 30 ML VIAL ONE (12:16)
[2024-05-18] MEDS ORDERED: EPINEPHrine 1 MG/ML VIAL ONE (12:16)
[2024-05-18] MEDS ORDERED: Bacitracin Zinc Ointment 30 gm TUBE ONE (12:17)
[2024-05-18] MEDS ORDERED: Rocuronium Bromide 10 MG/ML (10ML VIAL) ONE (12:20)
[2024-05-18] MEDS ORDERED: PROPOFOL 20 ML ONE (12:20)
[2024-05-18] MEDS ORDERED: Lidocaine 1% PF 5 ML VIAL ONE (12:20)
[2024-05-18] MEDS ORDERED: PHENYLEPHRINE-NS 100 MCG/ML 10 ML SYRINGE ONE (12:20)
[2024-05-18] MEDS ORDERED: Glycopyrrolate 0.2 MG/ML 5 ML SYRINGE ONE (12:26)
[2024-05-18] MEDS ORDERED: Midazolam HCl 2 mg/2 ml Vial ONE (12:46)
[2024-05-18] MEDS ORDERED: Ketamine In 0.9 % NaCl 50 MG/5 ML SYRINGE ONE (12:57)
[2024-05-18] MEDS ORDERED: Acetaminophen 325 MG (10.15 ML) UDCUP ONE (13:12)
[2024-05-18] MEDS ORDERED: Acetaminophen 500 MG TAB ONE (13:15)
[2024-05-18] MEDS ORDERED: metroNIDAZOLE 500 MG (100 mL) BAG ONE (13:16)
[2024-05-18 13:42] LABS: #Basophils 0.05 10x3/uL (0.0-0.2); %Basophils 0.6 % (0.0-1.0); %Eosinophils 2.8 % (0.0-10.0); %Lymphocytes 32.5 % (21.0-51.0); %Monocytes 10.1 % (0.0-10.0); %Neutrophils 53.5 % (42.0-75.0); Hematocrit 34.3 % (36.0-47.0); Mean Corpuscular HGB CONC 32.1 g/dL (32.0-36.0); Mean Corpuscular Hemoglobin 32.7 pg (27.0-31.0); Mean Corpuscular Volume 102.1 fL (78.0-98.0); Mean Platelet Volume 9.6 fL (7.4-10.4); Platelet Count 205 10x3/uL (130-400); RBC Distribution Width 12.2 % (11.5-14.5); Red Blood Cell (RBC) Count 3.36 mill/uL (4.20-5.40)
[2024-05-18 13:48] LABS: Anion Gap 14 mmol/L (10-20); BUN (Urea Nitrogen) 44 mg/dL (9.8-20.1); Calc. Creatinine Clearance 34 mL/min (70-130); Carbon Dioxide 23 mmol/L (23-31); Chloride 105 mmol/L (98-107); Estimated GFR 33; Glucose 123 mg/dL (83-110); Potassium 5.3 mmol/L (3.5-5.1); Sodium 137 mmol/L (136-145)
[2024-05-18] MEDS ORDERED: Dexamethasone 4 mg/ml Vial ONE (13:56)
[2024-05-18] MEDS ORDERED: Ondansetron PF 4 MG/2 ML Vial ONE (13:56)
[2024-05-18] MEDS ORDERED: fentaNYL 50 mcg/mL 1 mL Vial ONE (14:28)
== END 2024-05-18 17:20 | disposition home or self-care (01) ==
LOC: SDC 12:08
PROVIDERS: ATTEND Surgery
PROC: 06BY0ZC Excision of Hemorrhoidal Plexus, Open Approach (ICD-10-PCS; principal; 2024-05-18)
DX: K64.2 Third degree hemorrhoids (principal); J44.9 Chronic obstructive pulmonary disease, unspecified; I13.0 Hypertensive heart and chronic kidney disease with heart failure and stage 1 through stage 4 chronic kidney disease, or unspecified chronic kidney disease; N18.30 Chronic kidney disease, stage 3 unspecified; I50.9 Heart failure, unspecified; E78.5 Hyperlipidemia, unspecified; Z86.711 Personal history of pulmonary embolism; Z86.0100 Personal history of colon polyps, unspecified; Z88.6 Allergy status to analgesic agent; Z79.899 Other long term (current) drug therapy; Z79.890 Hormone replacement therapy; Z98.890 Other specified postprocedural states; Z90.49 Acquired absence of other specified parts of digestive tract; Z90.710 Acquired absence of both cervix and uterus
CPT/HCPCS: 46947; 80048; 85025; 93005; J0171; J0665; J1100; J2250; J2405; J2704; J3010; J3490; 93010

== ENCOUNTER 2024-06-03 08:18 | Inpatient (IN) | payer MEDICARE ==
[2024-06-03] MEDS ORDERED: Azithromycin 500 MG VIAL ONE (08:59)
[2024-06-03] MEDS ORDERED: methylPREDNISolone Sod Succ/PF 125 MG/2 ML VIAL ONE (08:59)
[2024-06-03] MEDS ORDERED: cefTRIAXone (ROCEPHIN) 2 GM VIAL ONE (08:59)
[2024-06-03] MEDS ORDERED: Sodium Chloride 0.9% 100 ML ONE (08:59)
[2024-06-03 09:05] LABS: #Basophils 0.03 10x3/uL (0.0-0.2); %Basophils 0.2 % (0.0-1.0); %Eosinophils 2.2 % (0.0-10.0); %Lymphocytes 13.1 % (21.0-51.0); %Monocytes 9.3 % (0.0-10.0); %Neutrophils 74.7 % (42.0-75.0); Hematocrit 31.7 % (36.0-47.0); Hemoglobin 10.2 g/dL (12.0-16.0); Mean Corpuscular HGB CONC 32.2 g/dL (32.0-36.0); Mean Corpuscular Hemoglobin 32.4 pg (27.0-31.0); Mean Corpuscular Volume 100.6 fL (78.0-98.0); Mean Platelet Volume 9.1 fL (7.4-10.4); Platelet Count 173 10x3/uL (130-400); RBC Distribution Width 12.2 % (11.5-14.5); Red Blood Cell (RBC) Count 3.15 mill/uL (4.20-5.40)
[2024-06-03] MEDS ORDERED: Ipratropium/Albuterol 3 ML NEB ONE (09:06)
[2024-06-03] MEDS ORDERED: Albuterol 2.5 MG (3 mL) NEB ONE ×2 (09:11→09:15)
[2024-06-03] MEDS ORDERED: Ipratropium Bromide 2.5 ml Neb ONE (09:11)
[2024-06-03 09:21] LABS: INR-International Normal Ratio 1.1; PTT 32.4 sec (22.9-36.1); Prothrombin Time 13.8 sec (12.0-14.7)
[2024-06-03 09:22] LABS: Bilirubin Negative (Negative); Blood, Urine Negative (Negative); CAUTI Indications for Culture Alt mental st,lethar; Clarity Clear (Clear); Glucose, Urine (Dipstick) Normal (Negative); Ketone, Urine Negative (Negative); Leukocyte 250 Leu/uL (Negative); Nitrite Negative (Negative); Protein, Urine (Dipstick) Negative (Neg-Trace); RBC/HPF 0-3 HPF (0-3); Specific Gravity, Urine 1.001 (1.002-1.036); Squamous Epithelial 0-3 HPF (0-3); Urobilinogen Normal mg/dL (Less than 2)
[2024-06-03 09:23] LABS: Bacteria/HPF 1+ HPF (None Seen)
[2024-06-03 09:24] LABS: Urine Culture Reflex No No
[2024-06-03 09:25] LABS: ALT (SGPT) 16 U/L (8-55); AST (SGOT) 23 U/L (5-34); Albumin 3.8 g/dL (3.4-4.8); Alkaline Phosphatase 53 U/L (40-110); Anion Gap 15 mmol/L (10-20); BUN (Urea Nitrogen) 30 mg/dL (9.8-20.1); Bilirubin, Total 0.5 mg/dL (0.2-1.2); Calc. Creatinine Clearance 0 mL/min (70-130); Calcium 9.2 mg/dL (7.8-10.44); Carbon Dioxide 23 mmol/L (23-31); Chloride 106 mmol/L (98-107); Estimated GFR 35; Globulin 2.8 g/dL (2.4-3.5); Glucose 143 mg/dL (83-110); Protein, Total 6.6 g/dL (5.8-8.1); Sodium 139 mmol/L (136-145)
[2024-06-03 09:31] LABS: Troponin I Less than 0.010 ng/mL (< 0.028)
[2024-06-03] MEDS ORDERED: Acetaminophen 500 MG TAB ONE (11:10)
[2024-06-03] MEDS ORDERED: Iopamidol-370 76% 500 ML MDV (1 ML CHARGE) ONE (11:24)
[2024-06-03] MEDS ORDERED: Acetaminophen 650 MG Suppository PR PRN (12:28)
[2024-06-03] MEDS ORDERED: Ondansetron ODT 4 MG TAB PO PRN (12:28)
[2024-06-03] MEDS ORDERED: Bisacodyl 5 MG TAB PO PRN (12:28)
[2024-06-03] MEDS ORDERED: Bisacodyl 10 MG SUPP PR PRN (12:28)
[2024-06-03] MEDS ORDERED: Ondansetron PF 4 MG/2 ML Vial IVP PRN (12:28)
[2024-06-03] MEDS ORDERED: Ipratropium/Albuterol 3 ML NEB NEB PRN (12:34)
[2024-06-03] MEDS ORDERED: Dextrose 50% Abboject 50 ML SYRINGE SLOW IVP PRN (12:35)
[2024-06-03] MEDS ORDERED: Glucagon 1 MG/ML KIT IM PRN (12:35)
[2024-06-03] MEDS ORDERED: Promethazine HCl 25 MG in Sodium Chloride 0.9% 50 ML IVPB PRN (12:35)
[2024-06-03] MEDS ORDERED: Dextrose 5% in Water 1,000 ML IV PRN (12:35)
[2024-06-03 12:49] VITALS: BMI 30.5
[2024-06-03] MEDS: Sodium Chloride 0.9% 1,000 ML IV SCH (14:11)
[2024-06-03] MEDS: Artificial Tear Ophth Sol 15 ML BOT R EYE SCH (14:13)
[2024-06-03] MEDS: Gabapentin 100 MG CAP PO SCH (14:40)
[2024-06-03] MEDS: Acetaminophen 325 MG TAB PO PRN (14:43)
[2024-06-03] MEDS: Atorvastatin Calcium 40 MG TAB PO SCH (20:53)
[2024-06-03] MEDS: methylPREDNISolone Sod Succ 40 MG VIAL IVP SCH (20:54)
[2024-06-03] MEDS: traZODone HCl 50 MG TAB PO SCH (21:59)
[2024-06-04] MEDS: Acetaminophen/Codeine 30-300mg Tablet PO PRN (04:20)
[2024-06-04 04:51] LABS: #Basophils Less than 0.03 10x3/uL (0.0-0.2); #Eosinophils Less than 0.03 10x3/uL (0.0-0.7); %Basophils 0.1 % (0.0-1.0); %Lymphocytes 10.9 % (21.0-51.0); %Monocytes 2.6 % (0.0-10.0); %Neutrophils 85.7 % (42.0-75.0); Hematocrit 28.4 % (36.0-47.0); Hemoglobin 9.1 g/dL (12.0-16.0); Mean Corpuscular Volume 102.9 fL (78.0-98.0); Mean Platelet Volume 9.5 fL (7.4-10.4); Platelet Count 161 10x3/uL (130-400); RBC Distribution Width 12.1 % (11.5-14.5); Red Blood Cell (RBC) Count 2.76 mill/uL (4.20-5.40)
[2024-06-04] MEDS: Levothyroxine Sodium 100 MCG TAB PO SCH (05:03)
[2024-06-04 05:09] LABS: ALT (SGPT) 14 U/L (8-55); AST (SGOT) 18 U/L (5-34); Albumin 3.1 g/dL (3.4-4.8); Alkaline Phosphatase 44 U/L (40-110); Anion Gap 13 mmol/L (10-20); BUN (Urea Nitrogen) 32 mg/dL (9.8-20.1); Bilirubin, Total 0.3 mg/dL (0.2-1.2); Calc. Creatinine Clearance 38 mL/min (70-130); Calcium 8.6 mg/dL (7.8-10.44); Carbon Dioxide 23 mmol/L (23-31); Chloride 107 mmol/L (98-107); Estimated GFR 37; Globulin 2.7 g/dL (2.4-3.5); Glucose 196 mg/dL (83-110); Potassium 4.8 mmol/L (3.5-5.1); Protein, Total 5.8 g/dL (5.8-8.1); Sodium 138 mmol/L (136-145)
[2024-06-04] MEDS: Citalopram 20 MG TAB PO SCH (08:03)
[2024-06-04] MEDS: cefTRIAXone\\ROCEPHIN 1 GM in Sodium Chloride 0.9% 100 ML IVPB SCH (08:03)
[2024-06-04] MEDS: Enoxaparin 30 MG (0.3 mL) SYRINGE SC SCH (08:03)
[2024-06-04] MEDS: Azithromycin 500 MG in Sodium Chloride 0.9% 250 ML 250 ML IVPB SCH (08:03)
[2024-06-04] MEDS: Pantoprazole DR 40 MG TAB PO SCH (08:04)
[2024-06-04] MEDS: Calcium Carbonate 600 MG + Vit D TAB PO SCH (08:04)
[2024-06-04] MEDS: Aspirin 81 mg Enteric Coated Tablet PO SCH (08:04)
[2024-06-04] MEDS: BuPROPion XL 150 MG ER.TAB PO SCH (08:04)
[2024-06-04] MEDS: Carvedilol 6.25 MG TAB PO SCH (08:54)
[2024-06-04] MEDS: Guaifenesin DM 100-10/5 ML UDCUP PO PRN (10:40)
[2024-06-04] MEDS: Insulin Lispro 100 UNIT/ML 10 ML VIAL SC PRN (17:28)
[2024-06-04] MEDS: traZODone HCl 50 MG TAB PO SCH (22:33)
[2024-06-05 06:26] LABS: #Basophils Less than 0.03 10x3/uL (0.0-0.2); #Eosinophils Less than 0.03 10x3/uL (0.0-0.7); %Basophils 0.1 % (0.0-1.0); %Monocytes 3.2 % (0.0-10.0); Hematocrit 28.6 % (36.0-47.0); Hemoglobin 9.1 g/dL (12.0-16.0); Mean Corpuscular HGB CONC 31.8 g/dL (32.0-36.0); Mean Corpuscular Hemoglobin 32.5 pg (27.0-31.0); Mean Corpuscular Volume 102.1 fL (78.0-98.0); Mean Platelet Volume 9.8 fL (7.4-10.4); Platelet Count 177 10x3/uL (130-400); RBC Distribution Width 11.9 % (11.5-14.5)
[2024-06-05 06:42] LABS: Anion Gap 12 mmol/L (10-20); BUN (Urea Nitrogen) 35 mg/dL (9.8-20.1); Calc. Creatinine Clearance 49 mL/min (70-130); Calcium 8.9 mg/dL (7.8-10.44); Carbon Dioxide 22 mmol/L (23-31); Chloride 105 mmol/L (98-107); Estimated GFR 50; Glucose 193 mg/dL (83-110); Potassium 4.9 mmol/L (3.5-5.1); Sodium 134 mmol/L (136-145)
[2024-06-05] MEDS: Enoxaparin 40 MG (0.4 mL) SYRINGE SC SCH (08:17)
[2024-06-05] MEDS: Furosemide 40 MG (4 mL) VIAL SLOW IVP SCH (09:30)
[2024-06-05] MEDS: Benzonatate 100 MG CAP PO SCH ×2 (12:16→13:59)
[2024-06-05] MEDS: guaiFENesin/Codeine 200 mg/20 mg 10 ml Cup PO PRN (16:36)
[2024-06-05] MEDS: Senokot S 8.6-50 MG TAB PO PRN (16:37)
[2024-06-06 05:56] LABS: #Basophils Less than 0.03 10x3/uL (0.0-0.2); #Eosinophils Less than 0.03 10x3/uL (0.0-0.7); %Basophils 0.1 % (0.0-1.0); %Lymphocytes 11.3 % (21.0-51.0); %Monocytes 3.9 % (0.0-10.0); %Neutrophils 84.1 % (42.0-75.0); Hematocrit 29.2 % (36.0-47.0); Hemoglobin 9.2 g/dL (12.0-16.0); Mean Corpuscular HGB CONC 31.5 g/dL (32.0-36.0); Mean Corpuscular Hemoglobin 32.3 pg (27.0-31.0); Mean Corpuscular Volume 102.5 fL (78.0-98.0); Mean Platelet Volume 9.8 fL (7.4-10.4); Platelet Count 183 10x3/uL (130-400); RBC Distribution Width 11.9 % (11.5-14.5); Red Blood Cell (RBC) Count 2.85 mill/uL (4.20-5.40)
[2024-06-06 06:11] LABS: Anion Gap 13 mmol/L (10-20); BUN (Urea Nitrogen) 35 mg/dL (9.8-20.1); Calc. Creatinine Clearance 49 mL/min (70-130); Calcium 9.3 mg/dL (7.8-10.44); Carbon Dioxide 28 mmol/L (23-31); Chloride 101 mmol/L (98-107); Estimated GFR 51; Glucose 194 mg/dL (83-110); Potassium 5.1 mmol/L (3.5-5.1); Sodium 137 mmol/L (136-145)
[2024-06-06] MEDS: Torsemide 20 MG TAB PO SCH (09:59)
[2024-06-06] MEDS: FLU (Fluad Triv) TS24-25 (65UP)/MF59C/PF 45 MCG/0.5 ML Syringe IM ONE (12:19)
[2024-06-06] MEDS: Furosemide 40 MG (4 mL) VIAL SLOW IVP SCH (13:29)
[2024-06-07 05:48] LABS: #Basophils Less than 0.03 10x3/uL (0.0-0.2); #Eosinophils Less than 0.03 10x3/uL (0.0-0.7); %Basophils 0.1 % (0.0-1.0); %Monocytes 5.5 % (0.0-10.0); %Neutrophils 81.1 % (42.0-75.0); Hematocrit 30.4 % (36.0-47.0); Hemoglobin 9.8 g/dL (12.0-16.0); Mean Corpuscular HGB CONC 32.2 g/dL (32.0-36.0); Mean Corpuscular Hemoglobin 31.7 pg (27.0-31.0); Mean Corpuscular Volume 98.4 fL (78.0-98.0); Mean Platelet Volume 9.6 fL (7.4-10.4); Platelet Count 197 10x3/uL (130-400); RBC Distribution Width 11.8 % (11.5-14.5); Red Blood Cell (RBC) Count 3.09 mill/uL (4.20-5.40)
[2024-06-07 06:05] LABS: Anion Gap 12 mmol/L (10-20); BUN (Urea Nitrogen) 38 mg/dL (9.8-20.1); Calc. Creatinine Clearance 46 mL/min (70-130); Calcium 9.1 mg/dL (7.8-10.44); Carbon Dioxide 30 mmol/L (23-31); Chloride 99 mmol/L (98-107); Estimated GFR 46; Glucose 196 mg/dL (83-110); Potassium 4.4 mmol/L (3.5-5.1); Sodium 137 mmol/L (136-145)
[2024-06-07] MEDS: Albumin 25% 25 GM (100 mL) BOT IVPB SCH (11:31)
[2024-06-08 06:11] LABS: Anion Gap 13 mmol/L (10-20); BUN (Urea Nitrogen) 40 mg/dL (9.8-20.1); Calc. Creatinine Clearance 49 mL/min (70-130); Calcium 9.5 mg/dL (7.8-10.44); Carbon Dioxide 34 mmol/L (23-31); Chloride 96 mmol/L (98-107); Estimated GFR 50; Glucose 211 mg/dL (83-110); Magnesium 2.4 mg/dL (1.6-2.6); Potassium 4.8 mmol/L (3.5-5.1); Sodium 138 mmol/L (136-145)
[2024-06-08 14:29] VITALS: BP 174/77; TEMP 98.3
== END 2024-06-08 15:20 | DRG 194 ==
LOC: ERS 08:18 → T4-A 12:37
PROVIDERS: ADMIT Internal Medicine; ATTEND Internal Medicine
DX: J18.9 Pneumonia, unspecified organism (principal); I13.0 Hypertensive heart and chronic kidney disease with heart failure and stage 1 through stage 4 chronic kidney disease, or unspecified chronic kidney disease; I50.32 Chronic diastolic (congestive) heart failure; J44.9 Chronic obstructive pulmonary disease, unspecified; N18.30 Chronic kidney disease, stage 3 unspecified; E78.5 Hyperlipidemia, unspecified; E03.9 Hypothyroidism, unspecified; F32.A Depression, unspecified; Z90.49 Acquired absence of other specified parts of digestive tract; Z90.710 Acquired absence of both cervix and uterus; Z82.49 Family history of ischemic heart disease and other diseases of the circulatory system; Z87.891 Personal history of nicotine dependence
CPT/HCPCS: 36415; 36416; 71045; 71046; 71275; 74230; 80048; 80053; 81001; 83605; 83735; 83880; 84484; 85025; 85610; 85730; 87428; 93005; 94760; 96365; 96366; 96367; 96375; J0456; J0696; J1650; J1815; J1940; J2919; J7030; J7050; J7611; J7620; J7644; P9047; Q9967

== ENCOUNTER 2024-08-25 09:52 | Emergency (ER) | payer MEDICARE ==
[2024-08-25 11:17] LABS: #Basophils Less than 0.03 10x3/uL (0.0-0.2); %Basophils 0.4 % (0.0-1.0); %Eosinophils 2.9 % (0.0-10.0); %Lymphocytes 45.2 % (21.0-51.0); %Monocytes 11.5 % (0.0-10.0); %Neutrophils 39.6 % (42.0-75.0); Hemoglobin 11.6 g/dL (12.0-16.0); Mean Corpuscular HGB CONC 32.2 g/dL (32.0-36.0); Mean Corpuscular Volume 99.4 fL (78.0-98.0); Mean Platelet Volume 9.2 fL (7.4-10.4); Platelet Count 133 10x3/uL (130-400); Red Blood Cell (RBC) Count 3.62 mill/uL (4.20-5.40)
[2024-08-25 11:43] LABS: Anion Gap 13 mmol/L (10-20); BUN (Urea Nitrogen) 25 mg/dL (9.8-20.1); Calc. Creatinine Clearance 0 mL/min (70-130); Carbon Dioxide 20 mmol/L (23-31); Chloride 111 mmol/L (98-107); Potassium 4.6 mmol/L (3.5-5.1); Sodium 139 mmol/L (136-145)
[2024-08-25 11:44] LABS: ALT (SGPT) 17 U/L (Less than 34); AST (SGOT) 22 U/L (11-34); Albumin 3.4 g/dL (3.1-4.5); Alkaline Phosphatase 51 U/L (40-110); Bilirubin, Total 0.2 mg/dL (0.3-1.2); Calcium 8.6 mg/dL (7.8-10.44); Estimated GFR 41; Globulin 2.7 g/dL (2.4-3.5); Glucose 166 mg/dL (83-110); Protein, Total 6.1 g/dL (5.8-8.1)
[2024-08-25 11:47] LABS: Troponin I Less than 0.010 ng/mL (< 0.028)
== END 2024-08-25 12:45 | disposition home or self-care (01) ==
LOC: ERS 09:52
DX: R05.9 Cough, unspecified (principal); I10 Essential (primary) hypertension; Z95.0 Presence of cardiac pacemaker
CPT/HCPCS: 36415; 71046; 80053; 83880; 84484; 85025; 87428; 93005

== ENCOUNTER 2025-01-03 17:16 | Emergency (ER) | payer MEDICARE, OTHER ==
[2025-01-03] MEDS ORDERED: Ketorolac Tromethamine 30 MG (1 mL) VIAL ONE (18:10)
[2025-01-03] MEDS ORDERED: Acetaminophen 500 MG TAB ONE (18:10)
[2025-01-03] MEDS ORDERED: Piperacillin/Tazobactam 4.5 GM VIAL ONE (18:10)
[2025-01-03] MEDS ORDERED: Sodium Chloride 0.9% 100 ML ONE (18:11)
[2025-01-03 18:19] LABS: #Basophils 0.04 10x3/uL (0.0-0.2); #Eosinophils 0.06 10x3/uL (0.0-0.7); #Monocytes 1.44 10x3/uL (0.11-0.59); #Neutrophils 7.36 10x3/uL (1.40-6.50); %Basophils 0.4 % (0.0-1.0); %Eosinophils 0.5 % (0.0-10.0); %Lymphocytes 20.7 % (21.0-51.0); %Monocytes 12.8 % (0.0-10.0); %Neutrophils 65.2 % (42.0-75.0); Hematocrit 33.9 % (36.0-47.0); Hemoglobin 10.7 g/dL (12.0-16.0); Mean Corpuscular HGB CONC 31.6 g/dL (32.0-36.0); Mean Corpuscular Hemoglobin 32.3 pg (27.0-31.0); Mean Corpuscular Volume 102.4 fL (78.0-98.0); Mean Platelet Volume 9.3 fL (7.4-10.4); Platelet Count 154 10x3/uL (130-400); RBC Distribution Width 13.2 % (11.5-14.5); Red Blood Cell (RBC) Count 3.31 mill/uL (4.20-5.40); White Blood Cell (WBC) Count 11.27 10x3/uL (4.8-10.8)
[2025-01-03 18:28] LABS: Bilirubin Negative (Negative); Blood, Urine 1+ (Negative); Clarity Clear (Clear); Glucose, Urine (Dipstick) Normal (Negative); Ketone, Urine Negative (Negative); Leukocyte 250 Leu/uL (Negative); Nitrite Negative (Negative); Protein, Urine (Dipstick) Negative (Neg-Trace); Specific Gravity, Urine 1.013 (1.002-1.036); Urobilinogen Normal mg/dL (Less than 2)
[2025-01-03 18:38] LABS: Anion Gap 14 mmol/L (10-20); BUN (Urea Nitrogen) 43 mg/dL (9.8-20.1); Calc. Creatinine Clearance 0 mL/min (70-130); Carbon Dioxide 27 mmol/L (23-31); Chloride 106 mmol/L (98-107); Estimated GFR 33; Potassium 4.9 mmol/L (3.5-5.1); Sodium 142 mmol/L (136-145)
[2025-01-03 18:39] LABS: ALT (SGPT) 10 U/L (Less than 34); AST (SGOT) 18 U/L (11-34); Albumin 3.7 g/dL (3.1-4.5); Alkaline Phosphatase 59 U/L (40-110); Bilirubin, Total 0.3 mg/dL (0.3-1.2); CK (CPK) 38 U/L (29-168); Calcium 9.4 mg/dL (7.8-10.44); Globulin 2.8 g/dL (2.4-3.5); Glucose 166 mg/dL (83-110); Lipase 10 U/L (8-78); Protein, Total 6.5 g/dL (5.8-8.1)
[2025-01-03 18:40] LABS: Troponin I Less than 0.010 ng/mL (< 0.028)
[2025-01-03 18:42] LABS: Bacteria/HPF Rare-Few HPF (None Seen); CAUTI Indications for Culture Dysuria,urgency,freq; RBC/HPF 0-3 HPF (0-3)
[2025-01-03 18:43] LABS: Urine Culture Reflex No No
[2025-01-03 18:44] LABS: INR-International Normal Ratio 1.1; Prothrombin Time 14.6 sec (12.0-14.7)
[2025-01-03 18:45] LABS: PTT 30.4 sec (22.9-36.1)
== END 2025-01-03 21:25 ==
LOC: ERS 17:16
DX: R50.82 Postprocedural fever (principal); I10 Essential (primary) hypertension; E03.9 Hypothyroidism, unspecified; Z95.0 Presence of cardiac pacemaker; Z79.82 Long term (current) use of aspirin; Z79.899 Other long term (current) drug therapy
CPT/HCPCS: 51701; 71045; 74177; 81001; 82550; 83605; 83690; 83735; 83880; 84484; 85610; 85730; 87040; 87086; 93005; 96365; 96366; 96375; 99285; J1885; J2543; J3370; Q9967; 80053; 84443; 85025